=== PATIENT | male | born 1955 | race Caucasian/White ===

== ENCOUNTER 2020-11-29 09:19 | Outpatient (CLI) | payer MEDICARE, SELFPAY | END 2020-11-29 09:20 | disposition home or self-care (01) | LOC: ANHBWCAUD 09:29 | PROVIDERS: PCP Internal Medicine; Visit Provider Otolaryngology | DX: H66.93 Otitis media, unspecified, bilateral (principal); H72.93 Unspecified perforation of tympanic membrane, bilateral; H90.6 Mixed conductive and sensorineural hearing loss, bilateral | CPT/HCPCS: 92557; 92567 ==

== ENCOUNTER → 2021-01-07 02:01 | Outpatient (CLI) | payer MEDICARE, SELFPAY ==
[2021-01-09 12:48] LABS: SARS-CoV-2 RNA PCR Negative
== END ==
PROVIDERS: PCP Internal Medicine; Visit Provider Otolaryngology
DX: Z01.812 Encounter for preprocedural laboratory examination (principal); Z20.822 Contact with and (suspected) exposure to COVID-19
CPT/HCPCS: C9803; U0003; U0005

== ENCOUNTER 2021-01-07 07:45 | Outpatient (CLI) | payer MEDICARE, SELFPAY ==
--- NOTE | 2021-01-07 07:55 | ECG_ITS ---
Measurements Intervals [place] Rate: 62 P: 22 [place]: 116 QRS: -5 QRSD: 101 T: 15 QT: 400 QTc: 407 Interpretive Statements SINUS RHYTHM WITH SHORT [place] INTERVAL BASELINE ARTIFACT- I, II, III, AVR, AVL, AVF, V1-V2, V4-V6 BORDERLINE ECG Electronically Signed On 01-07-2021 8:07:51 CDT by Hesham Calvin D.O.
[2021-01-07 08:36] LABS: Anion Gap 6 mmol/L (8-16); Blood Urea Nitrogen 24 mg/dL (9-20); Calcium 9.3 mg/dL (8.4-10.2); Carbon Dioxide 30 mmol/L (22-30); Chloride 100 mmol/L (98-107); Estimated Glomerular Filt Rate > 60; Glucose 215 mg/dL (75-110); Potassium 4.4 mmol/L (3.4-5.0); Sodium 136 mmol/L (137-145)
== END 2021-01-07 07:46 | disposition home or self-care (01) ==
LOC: ANHSURGERY 07:51
PROVIDERS: Anesthesiology; PCP Internal Medicine; Visit Provider Otolaryngology
DX: I10 Essential (primary) hypertension (principal); Z01.818 Encounter for other preprocedural examination; R94.31 Abnormal electrocardiogram [ECG] [EKG]
CPT/HCPCS: 36415; 80048; 93005; C9803; U0003; U0005

== ENCOUNTER 2021-01-10 01:17 | Day surgery (SDC) | payer MEDICARE, SELFPAY ==
[2020-12-26 15:22] VITALS: BMI 41.2
--- NOTE | 2021-01-09 06:47 | PM.HPGS ---
History of Present Illness History of Present Illness Consent: Risks, benefits, and alternatives have been discussed and questions answered. Patient agrees to proceed with procedure. Chief complaint: left TM perforation Narrative: Francesco Smith is a 65 year old male with a long history of hearing loss ear drainage tympanic membrane perforations here for repeat repair of the left TM perforation Review of Systems Review of Systems: All systems reviewed & are unremarkable except as noted in HPI and below PMFSH Social History Social History Smoking packs per day: 1.5 Smoking cigarettes per day: 30.0 Years smoked: 50 Smoking pack-years: 75.00 Smoking status: Current every day smoker Tobacco type: cigarettes Drinks per week: 1 Substance use: never Additional living arrangements comments: Spiritual care concerns: No Meds Home Medications and Allergies Home Medications Medication Instructions Recorded Confirmed Type apixaban 2.5 mg tablet 2.5 mg PO BID 10/25/20 12/26/20 History aspirin 81 mg tablet,delayed 81 mg PO DAILY 10/25/20 12/26/20 History release atorvastatin 40 mg tablet 40 mg PO DAILY 10/25/20 12/26/20 History cetirizine 10 mg capsule 10 mg PO DAILY 10/25/20 12/26/20 History metoprolol tartrate 50 mg tablet 50 mg PO Q12H 10/25/20 12/26/20 History montelukast 10 mg tablet 10 mg PO DAILY 10/25/20 12/26/20 History niacin 1,000 mg tablet,extended 1,000 mg PO QHS 10/25/20 12/26/20 History release omeprazole 20 mg capsule,delayed 20 mg PO DAILY 10/25/20 12/26/20 History release cephalexin 500 mg capsule 500 mg PO Q12H #20 cap 12/24/20 12/26/20 Rx lisinopril-hydrochlorothiazide 1 tablet PO QAM 12/26/20 12/26/20 History Allergies Allergy/AdvReac Type Severity Reaction Status Date / Time No Known Allergies Allergy Verified 12/26/20 15:16 Exam Narrative: Exam Narrative: chest clear heart without murmurs bilateral tympanic membrane perforations Assessment and Plan Additional Plan left tympanoplasty
--- NOTE | 2021-01-09 10:20 | P.PNAN_ITS ---
Anes - Initial Pre Proc Eval Procedure: Operation Date: 01/10/21 08:30 Proposed Procedures p Left Tympanoplasty - Barrie Hurd MD Date/Time: 01/09/21 10:20 Surgeon: Barrie uHrd MD Pre Op Diagnosis: left TM perforation Patient Data Age: 65 Gender: M Height: 1.73 m Weight: 123 kg Allergies Allergy/AdvReac Type Severity Reaction Status Date / Time No Known Allergies Allergy Verified 01/10/21 07:35 Home Medications Medication Instructions Recorded Confirmed Type apixaban 2.5 mg tablet 2.5 mg PO BID 10/25/20 12/26/20 History aspirin 81 mg tablet,delayed 81 mg PO DAILY 10/25/20 12/26/20 History release atorvastatin 40 mg tablet 40 mg PO DAILY 10/25/20 12/26/20 History cetirizine 10 mg capsule 10 mg PO DAILY 10/25/20 12/26/20 History metoprolol tartrate 50 mg tablet 50 mg PO Q12H 10/25/20 12/26/20 History montelukast 10 mg tablet 10 mg PO DAILY 10/25/20 12/26/20 History niacin 1,000 mg tablet,extended 1,000 mg PO QHS 10/25/20 12/26/20 History release omeprazole 20 mg capsule,delayed 20 mg PO DAILY 10/25/20 12/26/20 History release cephalexin 500 mg capsule 500 mg PO Q12H #20 cap 12/24/20 12/26/20 Rx lisinopril-hydrochlorothiazide 1 tablet PO QAM 12/26/20 12/26/20 History Patient hx anesthesia problems: none Family hx anesthesia problems: none [facility] Past Medical History Medical History (Updated 01/09/21 @ 10:19 by Casey Pierre DO) Anticoagulant long-term use GERD (gastroesophageal reflux disease) Hyperlipidemia Hypertension KASEY (obstructive sleep apnea) CPAP PVD (peripheral vascular disease) Social History Social History Smoking packs per day: 1.5 Smoking cigarettes per day: 30.0 Years smoked: 50 Smoking pack-years: 75.00 Smoking status: Current every day smoker Tobacco type: cigarettes Drinks per week: 1 Substance use: never Living arrangements: with family Additional living arrangements comments: Spiritual care concerns: No Anes - Eval Final PreProcedure Day of Procedure 01/09/21 10:20 Patient weight: morbidly obese Heart: regular rate and rhythm Lungs: clear to auscultation and normal air movement Airway: Mallampati scale class III Neurological: alert and oriented Last oral intake: >/= 8 hours ASA classification: III Emergent: no Anesthetic plan: proceed Anesthesia type and monitoring: general LMA and standard monitoring Informed Consent: The patient's anesthetic plan and its attendant risks and benefits were discussed with the patient/family/POA. Questions were solicited and answers provided to the satisfaction of the patient/family/POA.
[2021-01-10] VITALS (9 sets, daily range): BP systolic 116–143; BP diastolic 58–72; PULSE 58–85; RESP 18–24; TEMP 36.1–36.2; O2SAT 96–98; BMI 43.2
--- NOTE | 2021-01-10 05:52 | WPDHPUPDATE1 ---
History and Physical Update Update Date/Time: 01/10/21 05:52 History and Physical has been reviewed, including an updated exam of the patient. There are NO changes in the patient's condition. Risks, benefits, and alternatives have been discussed and questions answered. Patient agrees to proceed with procedure.
[2021-01-10 07:54] LABS: Glucose Point of Care 188 mg/dl (65-105)
[2021-01-10] MEDS: LACTATED RINGERS 1,000 ML 30 ML IV CONT (08:03)
[2021-01-10] MEDS: CIPROFLOXACIN HCL 0.3% OP SOLN 2.5 ML BTL 4 DROP EACH EAR (09:06)
[2021-01-10] MEDS: NEOMYCIN/POLYMYXIN B/PRAMOXINE 15 GM CREAM 1 APPLIC TOPICAL ×2 (09:08→09:26)
[2021-01-10] MEDS: LIDO 1%/EPINEPHRINE 1:100,000 50 ML VIAL INFILTRATE (09:08)
[2021-01-10] MEDS: LIDO 1%/EPINEPHRINE 1:100,000 20 ML VIAL 5 ML INFILTRATE (09:26)
[2021-01-10] MEDS: CIPROFLOXACIN HCL 0.3% OP SOLN 2.5 ML BTL 4 DROP LEFT EAR (09:27)
--- NOTE | 2021-01-10 09:42 | PM.PROC ---
Procedure Note - Detailed Date of procedure: 01/10/21 Pre-op diagnosis: left TM perforation Left tympanic membrane perforation Post-op diagnosis: same Description of procedure: Patient was prepped and draped fashion anesthesia the left ear was sterilely prepped and draped inspection of the revealed a small tear perforation posteriorly remained remainder of the eardrum was irritated but the intact was elected to packed the middle ear with Gelfoam and using epi disc to cover the small hole and then Gelfoam was used to cover the epi disc an ointment placed in the ear canal patient awakened retned to recovery in good condition Anesthesia: GLMA Surgeon: Barrie Hurd MD Estimated blood loss (mL): 5 Drains: No Packing: No Pathology: none sent Complications: No immediate complications Condition: stable Findings: Small posterior tympanic membrane perforation left ear
--- NOTE | 2021-01-10 14:01 | SUR.PREOP ---
0900; dr mayer notified of blood sugar
[2021-01-15 09:35] LABS: Glucose Point of Care 168 mg/dl (65-105)
--- NOTE | 2021-01-15 09:58 | PM.PROC ---
Procedure Note - Detailed Date of procedure: 01/15/21 Pre-op diagnosis: left TM perforation Surgeon: Barrie Hurd MD
== END 2021-01-10 12:10 | disposition home or self-care (01) ==
PROVIDERS: PCP Internal Medicine; Visit Provider Otolaryngology
PROC: (CPT 69610; principal; 2021-01-10 08:30)
DX: H72.92 Unspecified perforation of tympanic membrane, left ear (principal); I10 Essential (primary) hypertension; E78.5 Hyperlipidemia, unspecified; K21.9 Gastro-esophageal reflux disease without esophagitis; I73.9 Peripheral vascular disease, unspecified; G47.33 Obstructive sleep apnea (adult) (pediatric); F17.210 Nicotine dependence, cigarettes, uncomplicated; E66.01 Morbid (severe) obesity due to excess calories; Z68.41 Body mass index [BMI] 40.0-44.9, adult; Z79.01 Long term (current) use of anticoagulants; Z79.82 Long term (current) use of aspirin
CPT/HCPCS: 69610; 82948; A9270; C1763; J0171; J2405; J2704; J7120

== ENCOUNTER 2021-04-02 09:10 | Outpatient (CLI) | payer MEDICARE, SELFPAY ==
--- NOTE | ~2021-04-02 | CT_ITS ---
EXAMINATION: CT lung screening DATE: 04/02/2021 09:36 INDICATION: Personal history of tobacco dependence TECHNIQUE: Computed tomography (CT) of the chest was performed without intravenous contrast. The dose -length product was 368.43 mGy-cm. Automated exposure control and iterative reconstruction technique were employed. COMPARISON: CT dated 07/30/2015 FINDINGS: Borderline heart size. No significant pleural or pericardial effusion. There is atheroscler osis of the aorta and coronary arteries. No thoracic lymphadenopathy. Mild mediastinal lipomatosis. T here is patchy groundglass opacification in the lower lobes which may represent atelectasis or small airway disease. No endobronchial lesions. There is a surgical suture line in the left upper lobe sugg esting partial pneumonectomy with associated atelectasis/scarring. Clinically correlate. The upper ab domen is unremarkable. There is mild emphysema. IMPRESSION: 1. Lung-RADS category 1: Negative. Continue annual screening with noncontrast low-dose chest CT in 12 months. Reviewed, dictated and finalized at location A. IMPRESSION: 1. Lung-RADS category 1: Negative. Continue annual screening with noncontrast l ow-dose chest CT in 12 months.
== END 2021-04-02 09:11 | disposition home or self-care (01) ==
LOC: CHSIMG 09:12
PROVIDERS: PCP Internal Medicine; Visit Provider Internal Medicine
DX: Z12.2 Encounter for screening for malignant neoplasm of respiratory organs (principal); Z87.891 Personal history of nicotine dependence
CPT/HCPCS: 71271

== ENCOUNTER 2021-05-09 09:15 | Outpatient (RCR) | payer MEDICARE, SELFPAY ==
[2021-05-23 11:31] VITALS: BMI 38.9
[2021-05-23 11:32] VITALS: BMI 38.9
== END 2021-07-22 10:45 | disposition home or self-care (01) ==
LOC: ANHDMC 09:15
PROVIDERS: PCP Internal Medicine; Visit Provider Internal Medicine
DX: E11.69 Type 2 diabetes mellitus with other specified complication (principal); Z71.3 Dietary counseling and surveillance; Z71.89 Other specified counseling
CPT/HCPCS: 97804; G0108

== ENCOUNTER 2021-08-23 10:44 | Outpatient (CLI) | payer MEDICARE, SELFPAY | END 2021-08-23 10:45 | disposition home or self-care (01) | LOC: ANHBWCAUD 10:44 | PROVIDERS: PCP Internal Medicine; Visit Provider Otolaryngology | DX: H66.92 Otitis media, unspecified, left ear (principal); H72.03 Central perforation of tympanic membrane, bilateral; H90.6 Mixed conductive and sensorineural hearing loss, bilateral | CPT/HCPCS: 92557; 92567 ==

== ENCOUNTER 2021-09-03 00:23 | Day surgery (SDC) | payer MEDICARE, SELFPAY ==
[2021-08-19 14:01] VITALS: BMI 35.0
[2021-09-03 06:20] VITALS: BP 155/73; PULSE 72; RESP 18; TEMP 36.1; O2SAT 100; BMI 34.5
[2021-09-03 06:43] LABS: Glucose Point of Care 131 mg/dl (65-105)
[2021-09-03] MEDS: LACTATED RINGERS 1,000 ML 150 ML IV CONT (06:53)
--- NOTE | 2021-09-03 06:59 | WPDANESEPPF ---
Anes - Initial Pre Proc Eval Procedure: Operation Date: 09/03/21 07:30 Proposed Procedures p Colonoscopy - Molina Deal MD Date/Time: 09/03/21 06:59 Surgeon: Molina Deal MD Pre Op Diagnosis: positive cologuard Patient Data Age: 66 Gender: M Height: 1.73 m Weight: 103.1 kg Last Vital Signs Temp 36.1 C L 09/03/21 06:20 Pulse 72 09/03/21 06:20 Resp 18 09/03/21 06:20 BP 155/73 H 09/03/21 06:20 Pulse Ox 100 09/03/21 06:20 Allergies Allergy/AdvReac Type Severity Reaction Status Date / Time No Known Allergies Allergy Verified 09/03/21 06:32 Home Medications Medication Instructions Recorded Confirmed Type apixaban 2.5 mg tablet 2.5 mg PO BID 10/25/20 09/03/21 History aspirin 81 mg tablet,delayed 81 mg PO DAILY 10/25/20 08/19/21 History release atorvastatin 40 mg tablet 40 mg PO DAILY 10/25/20 08/19/21 History cetirizine 10 mg capsule 10 mg PO DAILY 10/25/20 08/19/21 History metoprolol tartrate 50 mg tablet 50 mg PO Q12H 10/25/20 08/19/21 History montelukast 10 mg tablet 10 mg PO DAILY 10/25/20 08/19/21 History niacin 1,000 mg tablet,extended 1,000 mg PO QHS 10/25/20 09/03/21 History release omeprazole 20 mg capsule,delayed 20 mg PO DAILY 10/25/20 08/19/21 History release lisinopril-hydrochlorothiazide 1 tablet PO QAM 12/26/20 08/19/21 History empagliflozin 10 mg tablet 10 mg PO DAILY 07/17/21 08/19/21 History Laboratory Tests 09/03/21 06:42 POC Capillary Glucose 131 mg/dl H mg/dl (65-105) Patient hx anesthesia problems: none Family hx anesthesia problems: none Results Review: All pre-operative results and documents have been reviewed as part of the pre-operative evaluation. [facility] Past Medical History Medical History Anticoagulant long-term use GERD (gastroesophageal reflux disease) Hyperlipidemia Hypertension KASEY (obstructive sleep apnea) CPAP PVD (peripheral vascular disease) Social History Social History Smoking packs per day: 1.5 Smoking cigarettes per day: 30.0 Years smoked: 50 Smoking pack-years: 75.00 Smoking status: Current every day smoker Tobacco type: cigarettes Alcohol intake: current Drinks per week: 1 Alcohol use details: 4 per month Substance use: never Substance use type: does not use Living arrangements: with family Additional living arrangements comments: Spiritual care concerns: No Anes - Eval Final PreProcedure Day of Procedure 09/03/21 06:59 Patient weight: obese Heart: regular rate and rhythm Lungs: decreased breath sounds Airway: Mallampati scale class III Neurological: alert and oriented Last oral intake: >/= 8 hours ASA classification: IV Emergent: no Anesthetic plan: proceed Anesthesia type and monitoring: general GIVS and standard monitoring Results Review: All pre-operative results and documents have been reviewed as part of the pre-operative evaluation. Informed Consent: The patient's anesthetic plan and its attendant risks and benefits were discussed with the patient/family/POA. Questions were solicited and answers provided to the satisfaction of the patient/family/POA.
--- NOTE | 2021-09-03 07:24 | PM.HPGS ---
History of Present Illness History of Present Illness Consent: Risks, benefits, and alternatives have been discussed and questions answered. Patient agrees to proceed with procedure. Chief complaint: positive cologuard Narrative: Francesco Smith is a 66 year old male with positive cologuard, last colonoscopy about 12 years ago. Review of Systems Constitutional: Constitutional: Denies headache(s) and Denies weakness Eyes: Eyes: Denies blurry vision ENT: Reports Normal hearing present, Denies headache(s) and Denies neck pain Cardiovascular: Cardiovascular: Denies chest pain and Denies dyspnea Respiratory: Respiratory: Denies dyspnea Gastrointestinal: Gastrointestinal: Reports no additional gastrointestinal complaints Genitourinary: Genitourinary: Denies dysuria Musculoskeletal: Musculoskeletal: Denies neck pain Integumentary/Breasts: Skin/Breast: Denies dry skin Neurologic: Reports Normal hearing present, Denies headache(s) and Denies weakness Psychiatric: Psychiatric: Denies anxiety Endocrine: Endocrine: Denies change in body appearance Hematologic/Lymphatic: Hematologic/Lymphatic: Denies easy bleeding Allergic/Immunologic: Allergic/Immunologic: Denies urticaria PMFSH Past Medical History Medical History (Updated 09/03/21 @ 07:24 by Molina Deal MD) Anticoagulant long-term use GERD (gastroesophageal reflux disease) Hyperlipidemia Hypertension KASEY (obstructive sleep apnea) CPAP Positive colorectal cancer screening using Cologuard test PVD (peripheral vascular disease) Social History Social History Smoking packs per day: 1.5 Smoking cigarettes per day: 30.0 Years smoked: 50 Smoking pack-years: 75.00 Smoking status: Current every day smoker Tobacco type: cigarettes Alcohol intake: current Drinks per week: 1 Alcohol use details: 4 per month Substance use: never Substance use type: does not use Living arrangements: with family Additional living arrangements comments: Spiritual care concerns: No Meds Home Medications and Allergies Home Medications Medication Instructions Recorded Confirmed Type apixaban 2.5 mg tablet 2.5 mg PO BID 10/25/20 09/03/21 History aspirin 81 mg tablet,delayed 81 mg PO DAILY 10/25/20 08/19/21 History release atorvastatin 40 mg tablet 40 mg PO DAILY 10/25/20 08/19/21 History cetirizine 10 mg capsule 10 mg PO DAILY 10/25/20 08/19/21 History metoprolol tartrate 50 mg tablet 50 mg PO Q12H 10/25/20 08/19/21 History montelukast 10 mg tablet 10 mg PO DAILY 10/25/20 08/19/21 History niacin 1,000 mg tablet,extended 1,000 mg PO QHS 10/25/20 09/03/21 History release omeprazole 20 mg capsule,delayed 20 mg PO DAILY 10/25/20 08/19/21 History release lisinopril-hydrochlorothiazide 1 tablet PO QAM 12/26/20 08/19/21 History empagliflozin 10 mg tablet 10 mg PO DAILY 07/17/21 08/19/21 History Allergies Allergy/AdvReac Type Severity Reaction Status Date / Time No Known Allergies Allergy Verified 09/03/21 06:32 Vital Signs Vital Signs - 24 hr 09/03/21 06:20 Temperature 97.0 F L Pulse Rate 72 Respiratory Rate 18 Blood Pressure 155/73 H Pulse Oximetry 100 Exam Const: General: comfortable and no acute distress HENMT: General nose exam: Normal nares present Eyes: General: appearance normal, both eyes and all related structures Neck: Neck: no JVD Resp: Auscultation: clear to auscultation bilaterally Cardio: Rate: regular rate Rhythm: regular rhythm GI: Inspection: non-distended GI Palp: Yes Soft to palpation Skin: General skin exam: normal color Neuro: General: gait normal Speech: normal speech Extrem: General: normal to inspection Psych: Mental Status: mental status grossly normal Assessment and Plan Assessment and plan (1) Positive colorectal cancer screening using Cologuard test: Code(s): R19.5 - Other fecal abnormal
[2021-09-03 07:59] VITALS: BP 84/49; PULSE 68; RESP 21; O2SAT 95
[2021-09-03 08:09] VITALS: BP 91/53; PULSE 72; RESP 15; O2SAT 98
[2021-09-03 08:19] VITALS: BP 137/68; PULSE 69; RESP 15; O2SAT 100
== END 2021-09-03 08:29 | disposition home or self-care (01) ==
PROVIDERS: PCP Internal Medicine; Visit Provider Internal Medicine Gastroenterology
PROC: 0DJD8ZZ Inspection of Lower Intestinal Tract, Via Natural or Artificial Opening Endoscopic (ICD-10-PCS; CPT 45378; principal; 2021-09-03 07:30)
DX: R19.5 Other fecal abnormalities (principal); D12.2 Benign neoplasm of ascending colon; D12.3 Benign neoplasm of transverse colon; D12.4 Benign neoplasm of descending colon; K57.30 Diverticulosis of large intestine without perforation or abscess without bleeding; K64.8 Other hemorrhoids; I10 Essential (primary) hypertension; E78.5 Hyperlipidemia, unspecified; G47.33 Obstructive sleep apnea (adult) (pediatric); I73.9 Peripheral vascular disease, unspecified; Z79.01 Long term (current) use of anticoagulants; Z79.84 Long term (current) use of oral hypoglycemic drugs; F17.210 Nicotine dependence, cigarettes, uncomplicated; E66.9 Obesity, unspecified; Z68.34 Body mass index [BMI] 34.0-34.9, adult
CPT/HCPCS: 45380; 45385; 82948; 88305; J2704; J7120

== ENCOUNTER 2021-09-17 10:00 | Outpatient (RCR) | payer SELFPAY | END 2021-12-02 23:59 | disposition home or self-care (01) | LOC: ANHBWCAUD 10:00 | PROVIDERS: PCP Internal Medicine; Visit Provider Otolaryngology | DX: Z46.1 Encounter for fitting and adjustment of hearing aid (principal) | CPT/HCPCS: 99199; V5257 ==

== ENCOUNTER 2022-04-24 09:52 | Outpatient (CLI) | payer MEDICARE, SELFPAY ==
--- NOTE | ~2022-04-24 | CT_ITS ---
EXAMINATION: CT lung screening DATE: 04/24/2022 10:08 INDICATION: Personal history of nicotine dependence, current smoker with 50 pack year history TECHNIQUE: Computed tomography (CT) of the chest was performed without intravenous contrast. The dose -length product (DLP) was 372.05 mGy-cm. Automated exposure control and iterative reconstruction tech [employer] were employed. COMPARISON: 04/02/2021 FINDINGS: There are changes of partial left pneumonectomy. No suspicious pulmonary nodules are identi fied. There is mild emphysema. No pleural effusion or pneumothorax. No pathologically enlarged thorac ic lymph nodes are identified. The heart size is normal. Calcified coronary artery atherosclerosis is noted. There are bridging osteophytes at multiple levels in the spine, consistent with diffuse idiop athic skeletal hyperostosis (DISH). IMPRESSION: 1. Lung-RADS category 1: Negative. Continue annual screening with noncontrast low-dose chest CT in 12 months. Reviewed, dictated and finalized at location B. IMPRESSION: 1. Lung-RADS category 1: Negative. Continue annual screening with noncontrast l ow-dose chest CT in 12 months.
== END 2022-04-24 09:53 | disposition home or self-care (01) ==
LOC: CHSIMG 09:54
PROVIDERS: PCP Internal Medicine; Visit Provider Internal Medicine
DX: Z12.2 Encounter for screening for malignant neoplasm of respiratory organs (principal); Z87.891 Personal history of nicotine dependence
CPT/HCPCS: 71271

== ENCOUNTER 2022-09-05 10:45 | Outpatient (CLI) | payer MEDICARE, SELFPAY ==
--- NOTE | ~2022-09-05 | XR_ITS ---
Clinical Indication: COPD, chest pain PA and lateral views of the chest: Comparison: 04/16/2016 Findings: The lungs are clear, without evidence of focal consolidation or pleural effusion. Cardiome diastinal silhouette is within normal limits. Bones and soft tissues are unremarkable. Impression: Normal chest. Reviewed, dictated and finalized at [facility]. [employer] Impression: Normal chest.
== END 2022-09-05 10:46 | disposition home or self-care (01) ==
LOC: CHSIMG 10:47
PROVIDERS: PCP Internal Medicine; Visit Provider Internal Medicine
DX: J44.9 Chronic obstructive pulmonary disease, unspecified (principal); M54.6 Pain in thoracic spine
CPT/HCPCS: 71046

== ENCOUNTER 2024-11-08 10:56 | Outpatient (CLI) | payer MEDICARE, SELFPAY ==
--- OUTSIDE RECORDS SUMMARY | 2024-11-08 13:00 | XMS_ITS | Encounter Summary ---
Author Organization [facility] Address [facility] [place] [address] Care Team Providers Care Director Of Aviation Name Role Phone Doroteo Vuong MD Primary Care Provider [phone] Sachin Urbano MD Unavailable Barrie Diego MD Unavailable [phone] Encounter Details Date Type Department Care Team (Late st Contact Info) Description 04/25/2022 Hospital Orders Only [facility] Pre/Post [address] [place] [address] Barrie Diego MD [address] [facility], [facility] [address] [place] [address] Social History Tobacco Use Types Packs/Day Years Used Date Smoking Tobacco: Every Day Cigarettes Smokeless Tobacco: Never Alcohol Use Standard Drinks/Week Comments No 0 (1 standard drink = 0.6 oz pur e alcohol) Sex and Gender Information Value Date Recorded Sex Assigned at Male 09/01/2024 11:26 AM [employer] Legal Sex Male 1:56 PM CDT Gender Identity Not on file Sexual Orientation Not on file Occupation Industry Job Start Date Job End Date Not on file Not on file Not on file Not on file documented as of this encounter Plan of Treatment Not on file documented as of this encounter Visit Diagnoses Not on filedocumented in this encounter Care Teams Director Of Aviation Relationship Specialty Start Date End Date Doroteo Vuong MD [address] [place] [id number] PCP - General INTERNAL MEDICINE 01/19/18 Sachin Urbano MD [address] [place] [address] Consulting Physician INTERNAL MEDICINE 03/04/22 Barrie Diego MD [address] [place] [address] Consulting Physician INTERVENTIONAL CARDIOLOGY 03/10/22 documented as of this encounter
--- OUTSIDE RECORDS SUMMARY | 2024-11-08 13:00 | XMS_ITS | Clinical Summary ---
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 Active montelukast 10 MG tablet Take 1 tablet (10 mg total) by mouth nightly at bedtime. Active cetirizine 10 MG tablet Take 1 tablet (10 mg total) by mouth daily. Active omeprazole 20 MG capsule Take 1 capsule (20 mg total) by mouth daily. Active niacin ER 500 MG ER tablet Take 2 tablets (1,000 mg total) by mouth daily. Active aspirin EC (ECOTRIN) 81 MG tablet Take 1 tablet (81 mg total) by mouth daily. Active lisinopril-hydro chlorothiazide 20-12.5 MG tablet Take 1 tablet by mouth daily. 9 Active fluticasone furoate 27.5 MCG/SPRAY Suspension 1 spray by Each Nostril route as needed. Active LYMPHEDEMA PUMP, DME,Indications: Chronic venous insufficiency,Hi story of DVT (deep vein thrombosis) Apply 1 Device topically daily. Lymphedema Pump DX I89.0 1 Device 1 0 Active empagliflozin (JARDIANCE) 25 MG tablet 3 Active buPROPion XL (WELLBUTRIN XL) 150 MG 24 hr tablet 3 Active metoprolol tartrate 75 MG Tab Take 75 mg by mouth 2 (two) times daily. 60 tablet 5 4 Active ELIQUIS 2.5 MG tablet take one tablet by mouth twice a day 180 tablet 2 4 Active cilostazol (PLETAL) 100 MG tablet take one tablet by mouth twice a day 180 tablet 6 4 Active COMPRESSION STOCKINGSIndicat ions:PVD (peripheral vascular disease) with claudication 10-15 MMHg Compression Stocking Knee High open or closed toe to be worn during waking hours Dx I83.893 1 Container 6 4 Active rosuvastatin (CRESTOR) 40 MG tablet Take 1 tablet (40 mg total) by mouth nightly at bedtime. Active Active Problems Problem Noted Date Diagnosed Date Primary hypertension 09/01/2023 History of DVT (deep vein thrombosis) 01/18/2020 Varicose veins of bilateral lower extremities with other complications 01/31/2019 residential (current) use of anticoagulants 2017 Acute deep vein thrombosis ( DVT) of femoral vein of left lower extremity ([facility]/HCC HHS/HCC) 03/23/2018 Ulcer of left lower extremit y with fat layer exposed ([facility]/HCC HHS/HCC) 03/23/2018 PVD (peripheral vascular disease) with claudicat ion 02/04/2018 Chronic venous insufficiency 02/04/2018 Femoral-popliteal bypass graft occlusion, left 0 02/04/2018 Acute deep vein thrombosis ( DVT) of popliteal vein of left lower extremity (CMS/HCC HHS/HCC) 02/04/2018 Bilateral leg pain PAD (peripheral artery disease) PVD (peripheral vascular disease) Overview (02/09/2018): S/P Left leg bypass Smoking trying to quit 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 (CMS/HCC HHS/HCC) Resolved Problems Problem Noted Date Diagnosed Date Resolved Date Postoperative follow-up 04/21/201804/17 Encounters Date Type Department Care Team Description 11/01/2024 1:30 PM CDT - 11/01/2024 11:59 PM CDT Hospital Encounter [facility] [address] [place] [address] Ai Mueller, SIGNAL APPRENTICE Discharge Disposition: Home or Self Care (Routine Discharge) 11/01/2024 Travel 10/17/2024 1:30 PM COREMAKER - 10/17/2024 11:59 PM COREMAKER Hospital Encounter [facility] [address] [place] [address] Ai Mueller, SIGNAL APPRENTICE Discharge Disposition: Home or Self Care (Routine Discharge) 10/17/2024 Travel 10/10/2024 1:25 PM COREMAKER - 10/10/2024 11:59 PM COREMAKER Hospital Encounter [facility] [address] [place] [address] Ai Mueller, SIGNAL APPRENTICE Discharge Disposition: Home or Self Care (Routine Discharge) 10/10/2024 Travel 10/03/2024 Travel 09/29/2024 11:26 AM COREMAKER - 09/29/2024 11:59 PM COREMAKER Hospital Encounter [facility] [address] [place] [address] Ai Mueller, SIGNAL APPRENTICE Discharge Disposition: Home or Self Care (Routine Discharge) 09/29/2024 Travel 09/22/2024 11:28 AM COREMAKER - 09/22/2024 11:59 PM COREMAKER Hospital Encounter [facility] [address] [place] [address] Ai Mueller, SIGNAL APPRENTICE Discharge Disposition: Home or Self Care (Routine Discharge) 09/21/2024 1:53 PM COREMAKER - 09/21/2024 11:59 PM COREMAKER Hospital Encounter [facility] [address] [id number] [place] [address] Rashel Vences MD Discharge Disposition: Home or Self Care (Routine Discharge) 09/21/2024 Travel 09/15/2024 11:25 AM COREMAKER - 09/15/2024 11:59 PM COREMAKER Hospital Encounter [facility] [address] [place] [address] Ai Mueller, SIGNAL APPRENTICE Discharge Disposition: Home or Self Care (Routine Discharge) 09/15/2024 Travel 09/08/2024 11:25 AM COREMAKER - 09/08/2024 11:59 PM COREMAKER Hospital Encounter [facility] [address] [place] [address] Ai Mueller, SIGNAL APPRENTICE Discharge Disposition: Home or Self Care (Routine Discharge) 09/08/2024 Travel 09/01/2024 11:27 AM COREMAKER - 09/01/2024 11:59 PM COREMAKER Hospital Encounter [facility] [address] [place] [address] Ai Mueller, SIGNAL APPRENTICE Discharge Disposition: Home or Self Care (Routine Discharge) 09/01/2024 Travel 08/31/2024 [facility] [address] [place] [address] Scanned, Doc Pccl 08/25/2024 11:30 AM COREMAKER - 08/25/2024 11:59 PM COREMAKER Hospital Encounter [facility] [address] [place] [address] Ai Mueller, SIGNAL APPRENTICE Discharge Disposition: Home or Self Care (Routine Discharge) 08/25/2024 Travel 08/18/2024 10:47 AM COREMAKER - 08/18/2024 11:59 PM COREMAKER Hospital Encounter [facility] [address] [place] [address] Ai Mueller, SIGNAL APPRENTICE Discharge Disposition: Home or Self Care (Routine Discharge) 08/18/2024 Travel 08/11/2024 12:42 PM COREMAKER - 08/11/2024 11:59 PM COREMAKER Hospital Encounter [facility] [address] [place] [address] Ai Mueller, SIGNAL APPRENTICE Discharge Disposition: Home or Self Care (Routine Discharge) 08/11/2024 Travel from Last 3 Months Immunizations Name Administration Dates Next Due Influenza Adult (Generic) 06/15/2019,,08/26/2017,04/16/2016,05/18,05/04/2012 Pneumococcal (Pneumovax 23) 12/28/2013 Pneumococcal (Prevnar 13) 12/30/2018 Tdap (Adacel) 12/28/2013 Family History Medical History Relation Comments Heart Attack Father Relation Status Comments Father PAD , Maternal Grandfather Maternal Grandmother Mother CHF Paternal Grandfather Paternal Grandmother Social History Tobacco Use Types Packs/Day Years Used Date Smoking Tobacco: Every Day Cigarettes Smokeless Tobacco: Never Tobacco Cessation:Ready to Q uit: Not Asked; Counseling Given: Not Answered Alcohol Use Standard Drinks/Week Comments No 0 (1 standard drink = 0.6 oz pur e alcohol) Sex and Gender Information Value Date Recorded Sex Assigned at Male 09/01/2024 11:26 AM COREMAKER Legal Sex Male 1:56 PM CDT Gender Identity Not on file Sexual Orientation Not on file Occupation Industry Job Start Date Job End Date Not on file Not on file Not on file Not on file Last Filed Vital Signs Vital Sign Reading Time Taken Comments Blood Pressure 162/76 08/02/2024 2:52 PM COREMAKER Recheck stanislaw Left Side Pulse 71 08/02/2024 2:51 PM COREMAKER Temperature 36 C (96.8 F) 04/29/2022 9:00 AM CDT Respiratory Rate 18 03/01/2024 9:13 AM CDT Oxygen Saturation 96% 03/01/2024 9:1 3 AM CDT Inhaled Oxygen Concentration - - Weight 110.2 kg (242 lb 14.4 oz) 08/02/2024 2:51 PM COREMAKER Height 172.7 cm (5' 8 ) 08/02/2024 2:51 PM COREMAKER Body Mass Index 36.93 08/02/2024 2:51 PM COREMAKER Plan of Treatment Health Maintenance Due Date Last Done Comments Colorectal Cancer Screening Colonoscopy (10 Years) 1955 Hepatitis C 1972 ASCVD LDL 08/19/2018 08/19/2017 Annual Medicare Wellness Visit 2019 Zoster Vaccines (2 of 2) 03/19/2022 01/22/2022 DTaP, Tdap and Td Vaccines (2 - Td or Tdap) 12/29/2023 12/28/2013 Pneumococcal Vaccine: 65+ Years Completed 05/02/2021, 12/30/2018, 12/28/2013 Influenza Adult Completed 05/30/2024, 04/17, 05/02/2021, Additional history exists COVID-19 Vaccine Completed 06/16/2024, 06/2022, 02/27/2022, Additional history exists RSV Immunization or 60+ Years Completed 07/21/2024 AAA SCREENING Completed 08/08/2024, 070 12/2022, 02/18/2022, Additional history exists Meningococcal B Vaccine Aged Out No l onger eligible based on patient's age to complete this topic Meningococcal Vaccine Aged Out No franchesca mekhi eligible based on patient's age to complete this topic RSV Immunizations Under 20 Months Aged Out No longer eligible based on patient's age to complete this topic Medical Devices Implanted Type Area Corporate Relations Director Device Identifier Shelf Expiration Date Model / Serial / Lot [id number] - [id number] Implanted:2017 by Barrie Diego MD at [facility] (Quantity not on file) Arterial [employer] - [employer] BARD [id number] / / [id number] - [id number] Implanted:Qty: 1 on 04/16/2018 by Barrie Diego MD at [facility] Arterial [employer] - DIV [employer] BARD [id number] / / [id number] Procedures Procedure Name Priority Date/Time Associated Diagnosis Comments USV VEIN MAPPING LOW ERMA Routine 09/21/2024 3:00 PM COREMAKER Anemia due to stage 5 chronic kidney disease, not on chronic dialysis ([facility]) Encounter for preprocedural neurological examination USV VEIN MAPPING UP ERMA Routine 09/21/2024 2:59 PM COREMAKER Anemia due to stage 5 chronic kidney disease, not on chronic dialysis ([facility]) Encounter for preprocedural neurological examination CULTURE, WOUND, W/GRAM STAIN Routine 08/25/2024 11:51 AM COREMAKER Non-pressure chronic ulcer of left calf limited to breakdown of skin ([facility] HHS/[facility]) CTA AORTO ILIOFEM RUNOFF ADRIEL 08/08/2024 10:39 AM COREMAKER Peripheral vascular disease LIPID PANEL Routine 08/19/2017 from Last 3 Months or Most Recently Relevant to Health Maintenance Results * USV VEIN MAPPING LOW ERMA (09/21/2024 3:00 PM COREMAKER) Anatomical Region Laterality Modality Extremity Ultrasound 09/21/2024 2:08 PM COREMAKER Narrative 09/23/2024 9:51 AM COREMAKER Vascular Report Pat.Name: FRANCESCO SMITH Pat.ID: [id number] St.Date: 09/21/2024 Refer.MD: RASHEL VENCES Exam Time: 2:08:00 PM Study Type:PVI VENOUS DUPLEX SCAN-LEGS BILAT Age: 11 1955,69Y Sex: M Sonogrphr: Osvaldo Sanders RVT, RDCS Pat. Stat.:Outpatient CPT - 4: 91935 Venous Duplex LE/UE Reason for Study:Pre-op evaluation Race: W Mapping Bilat: Bilateral lower extremity veins are patent and fully compressible with superficial vein diameters as listed. ++++++++++++++++++++++++++++++++++++ MEASUREMENTS: ++++++++++++++++++++++++++++++++++++ LEVEINS Right Dist Thigh Dist Thigh GSV 5.6 mm Right Mid Thigh Mid Thigh GSV A 7.1 mm Right Prox Thigh Prox Thigh GSV 7 mm Right SFJ SFJ GSV AP 7.9 mm Right GSV Prox Calf GSV Prox Calf A 4.6 mm Right GSV Mid Calf GSV Mid Calf AP 5.2 mm Right GSV Dist Calf GSV Dist Calf A 5.2 mm Right SSV Dist Calf SSV Dist Calf A 4 mm Right SSV Mid Calf SSV Mid Calf AP 3.1 mm Right SSV Prox Calf SSV Prox Calf A 1.9 mm Right Knee Knee GSV AP 5.8 mm Left SFJ SFJ GSV AP 5.8 mm Left Prox Thigh Prox Thigh GSV 8.9 mm Left Mid Thigh Mid Thigh GSV A 8 mm Left Dist Thigh Dist Thigh GSV 6.8 mm Left Knee Knee GSV AP 6.6 mm Left GSV Prox Calf GSV Prox Calf A 4.7 mm Left GSV Mid Calf GSV Mid Calf AP 4.8 mm Left GSV Dist Calf GSV Dist Calf 4.2 mm Left SSV Dist Calf SSV Dist Calf A 4.2 mm Left SSV Mid Calf SSV Mid Calf AP 5 mm Left SSV Prox Calf SSV Prox Calf A 3.9 mm <Electronic Signature> 09/23/2024 09:51 AM Darío Doherty M.D. Procedure Note Darío Doherty MD - 09/23/2024 Vascular Report Pat.Name: FRANCESCO SMITH Pat.ID: [id number] .Date: 09/21/2024 Refer.MD: RASHEL VENCES Exam Time: 2:08:00 PM Study Type:PVI VENOUS DUPLEX SCAN-LEGS BILAT Age: 11 1955,69Y Sex: M Sonogrphr: Osvaldo Sanders RVT, RDCS Pat. Stat.:Outpatient CPT - 4: 28440 Venous Duplex LE/UE Reason for Study:Pre-op evaluation Race: W Mapping Bilat: Bilateral lower extremity veins are patent and fully compressible with superficial vein diameters as listed. ++++++++++++++++++++++++++++++++++++ MEASUREMENTS: ++++++++++++++++++++++++++++++++++++ LEVEINS Right Dist Thigh Dist Thigh GSV 5.6 mm Right Mid Thigh Mid Thigh GSV A 7.1 mm Right Prox Thigh Prox Thigh GSV 7 mm Right SFJ SFJ GSV AP 7.9 mm Right GSV Prox Calf GSV Prox Calf A 4.6 mm Right GSV Mid Calf GSV Mid Calf AP 5.2 mm Right GSV Dist Calf GSV Dist Calf A 5.2 mm Right SSV Dist Calf SSV Dist Calf A 4 mm Right SSV Mid Calf SSV Mid Calf AP 3.1 mm Right SSV Prox Calf SSV Prox Calf A 1.9 mm Right Knee Knee GSV AP 5.8 mm Left SFJ SFJ GSV AP 5.8 mm Left Prox Thigh Prox Thigh GSV 8.9 mm Left Mid Thigh Mid Thigh GSV A 8 mm Left Dist Thigh Dist Thigh GSV 6.8 mm Left Knee Knee GSV AP 6.6 mm Left GSV Prox Calf GSV Prox Calf A 4.7 mm Left GSV Mid Calf GSV Mid Calf AP 4.8 mm Left GSV Dist Calf GSV Dist Calf 4.2 mm Left SSV Dist Calf SSV Dist Calf A 4.2 mm Left SSV Mid Calf SSV Mid Calf AP 5 mm Left SSV Prox Calf SSV Prox Calf A 3.9 mm <Electronic Signature> 09/23/2024 09:51 AM Darío Doherty M.D. us Rashel Vences MD US VASC Final Resu lt * USV VEIN MAPPING UP ERMA (09/21/2024 2:59 PM COREMAKER) Anatomical Region Laterality Modality Extremity Ultrasound 09/21/2024 2:46 PM COREMAKER Narrative 09/23/2024 9:51 AM COREMAKER Vascular Report Pat.Name: FRANCESCO SMITH Pat.ID: [id number] St.Date: 09/21/2024 Refer.MD: RASHEL VENCES Exam Time: 2:46:00 PM Study Type:PVI VENOUS DUPLEX SCAN-ARMS BILAT Age: 11 1955,69Y Sex: M Sonogrphr: Osvaldo Sanders RVT, RDCS Pat. Stat.:Outpatient CPT - 4: 28981.xs Venous Duplex LE/UE Reason for Study:Pre-op evaluation Race: W Mapping Bilat: Bilateral upper extremity veins are patent and fully compressible with superficial vein diameters as listed. ++++++++++++++++++++++++++++++++++++ MEASUREMENTS: ++++++++++++++++++++++++++++++++++++ UEVEINS Right Basilic Antecub Fossa Basilic Antecub 3.5 mm Right Basilic Forearm Dist Basilic Forearm 3.9 mm Right Basilic Forearm Mid Basilic Forearm 4.7 mm Right Basilic Forearm Prox Basilic Forearm 4.6 mm Right Basilic Upper Arm Dist Basilic Upper A 6.3 mm Right Basilic Upper Arm Mid Basilic Upper A 5.5 mm Right Basilic Upper Arm Prox Basilic Upper A 6.3 mm Right Cephalic Antecub Fossa Cephalic Antecu 9.1 mm Right Cephalic Forearm Dist Cephalic Forear 3.8 mm Right Cephalic Forearm Mid Cephalic Forear 5.3 mm Right Cephalic Forearm Prox Cephalic Forear 4.8 mm Right Cephalic Upper Arm Dist Cephalic Upper 7 mm Right Cephalic Upper Arm Mid Cephalic Upper 6.2 mm Right Cephalic Upper Arm Prox Cephalic Upper 5.2 mm Left Basilic Antecub Fossa Basilic Antecub 4.3 mm Left Basilic Forearm Dist Basilic Forearm 3.5 mm Left Basilic Forearm Mid Basilic Forearm 3.5 mm Left Basilic Forearm Prox Basilic Forearm 3.7 mm Left Basilic Upper Arm Dist Basilic Upper A 5.7 mm Left Basilic Upper Arm Mid Basilic Upper A 6.9 mm Left Basilic Upper Arm Prox Basilic Upper A 6.6 mm Left Cephalic Antecub Fossa Cephalic Antecu 5.6 mm Left Cephalic Forearm Dist Cephalic Forear 2.8 mm Left Cephalic Forearm Mid Cephalic Forear 2.7 mm Left Cephalic Forearm Prox Cephalic Forear 3.1 mm Left Cephalic Upper Arm Dist Cephalic Upper 5.1 mm Left Cephalic Upper Arm Mid Cephalic Upper 5.3 mm Left Cephalic Upper Arm Prox Cephalic Upper 5.7 mm <Electronic Signature> 09/23/2024 09:51 AM Darío Doherty M.D. Procedure Note Darío Doherty MD - 09/23/2024 Vascular Report Pat.Name: FRANCESCO SMITH Pat.ID: [id number] .Date: 09/21/2024 Refer.MD: RASHEL VENCES Exam Time: 2:46:00 PM Study Type:PVI VENOUS DUPLEX SCAN-ARMS BILAT Age: 11 1955,69Y Sex: M Sonogrphr: Osvaldo SandersT, RDCS Pat. Stat.:Outpatient CPT - 4: 70796.xs Venous Duplex LE/UE Reason for Study:Pre-op evaluation Race: W Mapping Bilat: Bilateral upper extremity veins are patent and fully compressible with superficial vein diameters as listed. ++++++++++++++++++++++++++++++++++++ MEASUREMENTS: ++++++++++++++++++++++++++++++++++++ UEVEINS Right Basilic Antecub Fossa Basilic Antecub 3.5 mm Right Basilic Forearm Dist Basilic Forearm 3.9 mm Right Basilic Forearm Mid Basilic Forearm 4.7 mm Right Basilic Forearm Prox Basilic Forearm 4.6 mm Right Basilic Upper Arm Dist Basilic Upper A 6.3 mm Right Basilic Upper Arm Mid Basilic Upper A 5.5 mm Right Basilic Upper Arm Prox Basilic Upper A 6.3 mm Right Cephalic Antecub Fossa Cephalic Antecu 9.1 mm Right Cephalic Forearm Dist Cephalic Forear 3.8 mm Right Cephalic Forearm Mid Cephalic Forear 5.3 mm Right Cephalic Forearm Prox Cephalic Forear 4.8 mm Right Cephalic Upper Arm Dist Cephalic Upper 7 mm Right Cephalic Upper Arm Mid Cephalic Upper 6.2 mm Right Cephalic Upper Arm Prox Cephalic Upper 5.2 mm Left Basilic Antecub Fossa Basilic Antecub 4.3 mm Left Basilic Forearm Dist Basilic Forearm 3.5 mm Left Basilic Forearm Mid Basilic Forearm 3.5 mm Left Basilic Forearm Prox Basilic Forearm 3.7 mm Left Basilic Upper Arm Dist Basilic Upper A 5.7 mm Left Basilic Upper Arm Mid Basilic Upper A 6.9 mm Left Basilic Upper Arm Prox Basilic Upper A 6.6 mm Left Cephalic Antecub Fossa Cephalic Antecu 5.6 mm Left Cephalic Forearm Dist Cephalic Forear 2.8 mm Left Cephalic Forearm Mid Cephalic Forear 2.7 mm Left Cephalic Forearm Prox Cephalic Forear 3.1 mm Left Cephalic Upper Arm Dist Cephalic Upper 5.1 mm Left Cephalic Upper Arm Mid Cephalic Upper 5.3 mm Left Cephalic Upper Arm Prox Cephalic Upper 5.7 mm <Electronic Signature> 09/23/2024 09:51 AM Darío Doherty M.D. us Rashel Vences MD [facility] Final Resu lt * CULTURE, WOUND, W/GRAM STAIN (08/25/2024 11:51 AM COREMAKER) SPEC DESCRIPTION LEG,LEFT 08/25/2024 12:21 PM COREMAKER [facility] SPECIAL REQUESTS NO SPECIAL REQUEST 08/25/2024 12:21 PM COREMAKER [facility] GRAM STAIN RESULT NO ORGANISMS SEEN 08/25/2024 1:09 PM COREMAKER [facility] GRAM STAIN RESULT NO WBC SEEN 08/25/2024 1:09 PM COREMAKER [facility] CULTURE RESULT FEW STAPHYLOCOCCU S, COAGULASE NEGATIVE 08/28/2024 7:46 AM COREMAKER [facility] STRUCTURE OF LEFT LOWER LIMB / Unknown 08/25/2024 11:51 AM COREMAKER 08/25/2024 12:33 PM COREMAKER us Ai Mueller SIGNAL APPRENTICE MICROBIOLOGY - GENERAL ORDERAB LES Final Result [facility] [address] 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 Chronic total occlusion of left SFA stent. Bilateral collateral circulation to a patent popliteal artery and trifurcation runoff arteries. Dominant runoff appears to be bilateral posterior tibial artery with assistance from peroneal artery. Bilateral anterior tibial artery heavily calcified. Patent aorta and iliacs. Patent common and deep femoral artery. A 7 cm long by 3 cm AP superficial skin ulceration of outer left lower leg just above the ankle. No soft tissue gas or abscess. No osteomyelitis. Ordered By: RASHEL VENCES Interpreted By: Darius Rios MD, 08/08/2024 3:25 PM Narrative 08/08/2024 3:33 PM COREMAKER [facility] [address] [place] [id number] CTA of abdominal aorta and bilateral lower extremities 08/08/2024 Indication: Claudication and leg ischemia, stents in the left leg, peripheral artery disease, peripheral vascular disease, stricture in the right leg arteries, stricture in the left leg arteries. Comparison: 02/18/2023 Technique: Images were obtained through the abdomen, pelvis and bilateral lower extremities precontrast. Images were repeated during IV contrast administration of 94 cc of Isovue-370 the indwelling IV. Axial and coronal images were reviewed. In addition 3-D volume rendered and MIP images were obtained on the independent Note workstation. NONVASCULAR FINDINGS: No acute finding seen in the lower chest, liver, spleen, gallbladder, pancreas, adrenals, kidneys, GI tract, bladder, or prostate. Prior appendectomy. Colonic diverticula. Small fat inguinal hernia. No free fluid or free air or adenopathy. Degenerated spine. Skin ulceration outer left lower leg just above the ankle. This is superficial and is 7 cm long by 3 cm AP. No soft tissue gas or abscess. No osteomyelitis. VASCULAR FINDINGS: Heavily calcified aorta without aneurysm or dissection. No significant stenosis of the aorta. Patent celiac artery and superior mesenteric artery and bilateral main renal arteries. Of note, there is a duplex right main renal artery. A small accessory left renal artery seen superiorly. Patent inferior mesenteric artery. Patent bilateral common iliac arteries with minor stenosis. Patent bilateral external iliac arteries with minor stenosis. Patent bilateral common femoral arteries. Patent bilateral deep femoral arteries. The right superficial femoral artery is occluded distally. There is collateral circulation to the popliteal artery. A 3 artery runoff is seen. The left leg shows occluded appearance of the superficial femoral artery stent. Collateral circulation to a patent popliteal artery and trifurcation runoff arteries. Dominant runoff appears to be posterior tibial artery with assistance from peroneal artery. Anterior tibial artery heavily calcified. Procedure Note Darius Rios MD - 08/08/2024 [facility] [address] [facility] [place] [id number] CTA of abdominal aorta and bilateral lower extremities 08/08/2024 Indication: Claudication and leg ischemia, stents in the left leg,peripheral artery disease, peripheral vascular disease, stricture in theright leg arteries, stricture in the left leg arteries. Comparison: 02/18/2023 Technique: Images were obtained through the abdomen, pelvis and bilaterallower extremities precontrast. Images were repeated during IV contrastadministration of 94 cc of Isovue-370 the indwelling IV. Axial and coronalimages were reviewed. In addition 3-D volume rendered and MIP images wereobtained on the independent Note workstation. NONVASCULAR FINDINGS: No acute finding seen in the lower chest, liver, spleen, gallbladder,pancreas, adrenals, kidneys, GI tract, bladder, or prostate. Priorappendectomy. Colonic diverticula. Small fat inguinal hernia. No freefluid or free air or adenopathy. Degenerated spine. Skin ulceration outerleft lower leg just above the ankle. This is superficial and is 7 cm longby 3 cm AP. No soft tissue gas or abscess. No osteomyelitis. VASCULAR FINDINGS: Heavily calcified aorta without aneurysm or dissection. No significantstenosis of the aorta. Patent celiac artery and superior mesentericartery and bilateral main renal arteries. Of note, there is a duplexright main renal artery. A small accessory left renal artery seensuperiorly. Patent inferior mesenteric artery. Patent bilateral common iliac arteries with minor stenosis. Patentbilateral external iliac arteries with minor stenosis. Patent bilateral common femoral arteries. Patent bilateral deep femoralarteries. The right superficial femoral artery is occluded distally. There iscollateral circulation to the popliteal artery. A 3 artery runoff isseen. The left leg shows occluded appearance of the superficial femoralartery stent. Collateral circulation to a patent popliteal artery andtrifurcation runoff arteries. Dominant runoff appears to be posteriortibial artery with assistance from peroneal artery. Anterior tibial arteryheavily calcified. 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 Chronic total occlusion of left SFA stent. Bilateral collateral circulation to a patent popliteal artery andtrifurcation runoff arteries. Dominant runoff appears to be bilateralposterior tibial artery with assistance from peroneal artery. Bilateralanterior tibial artery heavily calcified. Patent aorta and iliacs. Patent common and deep femoral artery. A 7 cm long by 3 cm AP superficial skin ulceration of outer left lower legjust above the ankle. No soft tissue gas or abscess. No osteomyelitis. 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
--- OUTSIDE RECORDS SUMMARY | 2024-11-08 13:00 | XMS_ITS | Encounter Summary ---
Author Organization [facility] Address [facility] [place] [address] Care Team Providers Care Reverse Engineer Name Role Phone Doroteo Vuong MD Primary Care Provider [phone] Sachin Urbano MD Unavailable Sachin Urbano MD Unavailable Barrie Diego MD Unavailable [phone] Encounter Details Date Type Department Care Team (Late st Contact Info) Description 01/18/2020 Abstract [facility] [address] [place] [address] Sachin Urbano MD [address] [facility], [address] [place] [address] Social History Tobacco Use Types Packs/Day Years Used Date Smoking Tobacco: Every Day Cigarettes Smokeless Tobacco: Never Alcohol Use Standard Drinks/Week Comments No 0 (1 standard drink = 0.6 oz pur e alcohol) Sex and Gender Information Value Date Recorded Sex Assigned at Male 09/01/2024 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 No / Unsure 01/18/2020 3:35 PM CDT documented as of this encounter Plan of Treatment Not on file documented as of this encounter Procedures Procedure Name Priority Date/Time Associated Diagnosis Comments BASIC METABOLIC PANEL Routine 12/24/2019 PAD (peripheral artery disease) Chronic venous insufficiency Varicose veins of bilateral lower extremities with other complications CBC, AUTO, NO DIFF Routine 12/24/2019 PAD (peripheral artery disease) Chronic venous insufficiency Varicose veins of bilateral lower extremities with other complications documented in this encounter Results * BASIC METABOLIC PANEL (12/24/2019) BUN 17 CREATININE S/P/B 1.0 0.7 - 1.3 12/24/2019 Sachin Urbano MD LABORATORY Final Result * CBC, AUTO, NO DIFF (12/24/2019) HGB 15.8 HCT 44.3 PLT 192 12/24/2019 Sachin Urbano MD LABORATORY Edited Result - Final documented in this encounter Visit Diagnoses Diagnosis PAD (peripheral artery disease) Peripheral vascular disease, unspecified Chronic venous insufficiency Unspecified venous (peripheral) insufficiency Varicose veins of bilateral lower extremities with other complications documented in this encounter Care Teams Reverse Engineer Relationship Specialty Start Date End Date Doroteo Vuong MD [address] [place] [phone] PCP - General INTERNAL MEDICINE 01/19/18 Sachin Urbano MD [address] [place] [address] Vascular/Rn Documentation Specialist INTERNAL MEDICINE 02/04/18 Sachin Urbano MD [address] [place] [address] Consulting Physician INTERNAL MEDICINE 03/04/22 Barrie Diego MD [address] [place] [address] Consulting Physician INTERVENTIONAL CARDIOLOGY 03/10/22 documented as of this encounter
== END 2024-11-08 10:57 | disposition home or self-care (01) ==
LOC: ANHBWCAUD 10:57
PROVIDERS: PCP Internal Medicine; Visit Provider Otolaryngology
DX: H72.02 Central perforation of tympanic membrane, left ear (principal); H71.22 Cholesteatoma of mastoid, left ear; H90.6 Mixed conductive and sensorineural hearing loss, bilateral
CPT/HCPCS: 92557; 92567

== ENCOUNTER 2024-12-19 14:31 | Outpatient (CLI) | payer MEDICARE, SELFPAY ==
--- NOTE | ~2024-12-19 | XR_ITS ---
XR chest 2V Ordering provider: Lisa Ham, DISHCLOTH FOLDER History: 69 years Male with . Productive Cough, Fever . Comparison: September 05, 2022 FINDINGS: MEDIASTINUM: The cardiac silhouette is not enlarged. LUNGS: No pneumothorax. Opacification the left lung base medially is seen. Minimal opacification in the right perihilar area suggestive of pneumonia. Blunting of the right costophrenic angle is noted. OTHER: No free air under the diaphragm. Degenerative changes of the spine. IMPRESSION: Right perihilar pneumonia. Left basilar atelectasis versus pneumonia medially. Blunting of the right costophrenic angle which ma y be due to fibrosis or effusion. Reviewed, dictated and finalized at location A. IMPRESSION: Right perihilar pneumonia. Left basilar atelectasis versus pneumonia medially. Blunting of the right costo phrenic angle which may be due to fibrosis or effusion.
--- OUTSIDE RECORDS SUMMARY | 2024-12-19 15:10 | XMS_ITS | Encounter Summary ---
Author Organization [facility] Address [facility] [place] [address] Care Team Providers Care Blood Bank Custodian Name Role Phone Doroteo Vuong MD Primary Care Provider [phone] Sachin Urbano MD Unavailable Barrie Diego MD Unavailable [phone] Encounter Details Date Type Department Care Team (Late st Contact Info) Description 04/25/2022 Hospital Orders Only [place] Technican Pre/Post [address] [place], [place] [id number] Barrie Diego MD [address] [facility] [address] [place] [address] Social History Tobacco Use Types Packs/Day Years Used Date Smoking Tobacco: Every Day Cigarettes Smokeless Tobacco: Never Alcohol Use Standard Drinks/Week Comments No 0 (1 standard drink = 0.6 oz pur e alcohol) Sex and Gender Information Value Date Recorded Sex Assigned at Male 09/01/2024 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 Legal Sex Male 1:56 PM CDT Gender Identity Not on file Sexual Orientation Not on file Occupation Industry Job Start Date Job End Date Not on file Not on file Not on file Not on file documented as of this encounter Plan of Treatment Not on file documented as of this encounter Visit Diagnoses Not on filedocumented in this encounter Care Teams Blood Bank Custodian Relationship Specialty Start Date End Date Doroteo Vuong MD [address] [place] [phone] PCP - General INTERNAL MEDICINE 01/19/18 Sachin Urbano MD [address] [place] [phone] Consulting Physician INTERNAL MEDICINE 03/04/22 Barrie Diego MD [address] [place] [phone] Consulting Physician INTERVENTIONAL CARDIOLOGY 03/10/22 documented as of this encounter
--- OUTSIDE RECORDS SUMMARY | 2024-12-19 15:10 | XMS_ITS | Referral Summary ---
Author Organization [facility] Address [facility] [place] [address] Care Team Providers Care Esthetician/Skin Therapist Name Role Phone Doroteo Vuong MD Primary Care Provider [phone] Encounters Date Type Department Care Team Description 12/06/2024 10:20 AM CDT Office Visit [facility] [address] [facility] Office Building [address] [place] [address] Tatyana Mathews MD Cholesteatoma of mastoid, left ear; Central perforation of tympanic membrane, right ear; Mixed conductive and sensorineural hearing loss, bilateral from Last 3 Months Allergies Active Allergy Reactions Criticality Noted Date Comments Adhesive Tape-Silicones Medications Eliquis 2.5 mg tablet Take 1 tablet (2.5 mg total) by mouth 2 (two) times a day 5 Active aspirin 81 mg enteric coated tablet Take 1 tablet (81 mg total) by mouth daily Active buPROPion XL (WELLBUTRIN XL) 150 mg 24 hr tablet Take 1 tablet (150 mg total) by mouth cutter operator before breakfast 3 Active cetirizine (ZyrTEC) 10 mg tablet Take 1 tablet (10 mg total) by mouth daily Active cilostazoL (PLETAL) 100 mg tablet Take 1 tablet (100 mg total) by mouth 2 (two) times a day 4 Active clopidogreL (PLAVIX) 75 mg tablet Take 1 tablet (75 mg total) by mouth daily 5 Active empagliflozin (JARDIANCE) 25 mg tablet Take 1 tablet (25 mg total) by mouth daily 3 Active fluticasone (VERAMYST) 27.5 mcg/actuation nasal spray Administer 1 spray into affected nostril(s) as needed Active lisinopril-hydr oCHLOROthiazide (ZESTORETIC) 20-12.5 mg per tablet Take 1 tablet by mouth daily 9 Active metoprolol tartrate (LOPRESSOR) 75 mg tablet immediate release tablet Take 1 tablet (75 mg total) by mouth 2 (two) times a day 4 Active montelukast (SINGULAIR) 10 mg tablet Take 1 tablet (10 mg total) by mouth daily Active niacin ER (SLO-NIACIN) 500 mg CR tablet Take 2 tablets (1,000 mg total) by mouth daily Active ofloxacin (FLOXIN) 0.3 % otic solution 5 Active omeprazole (PriLOSEC) 20 mg capsule Take 1 capsule (20 mg total) by mouth daily Active rosuvastatin (CRESTOR) 40 mg tablet Take 1 tablet (40 mg total) by mouth daily Active Rybelsus 7 mg tablet 5 Active Active Problems Problem Noted Date Diagnosed Date Bilateral leg pain 12/06/2024 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 12/06/2024 Primary hypertension 09/01/2023 Varicose veins of bilateral lower extremities with other complications 01/31/2019 Acute deep vein thrombosis ( DVT) of femoral vein of left lower extremity 03/23/2018 Ulcer of left lower extremity with fat layer exp osed 03/23/2018 Acute deep vein thrombosis ( DVT) of popliteal vein of left lower extremity 02/04/2018 Chronic venous insufficiency 02/04/2018 Femoral-popliteal bypass graft occlusion, left 0 02/04/2018 PAD (peripheral artery disease) 02/04/2018 Overview (12/06/2024): S/P Left leg bypass Histoplasmosis 05/08/2011 Lung mass 04/10/2011 Immunizations Immunization Administration Dates Next Due Influenza, Quad, Adjuvantate d, Intramuscular 04/28/2023 Influenza, Quadrivalent, Hig h Dose, Preservative Free, Intrr 05/30/2024 Influenza, Quadrivalent, Spl it, Intramuscular 08/26/2017,06/07/2014 Influenza, Quadrivalent, Spl it, Preservative Free, Intramuscular 04/30/2022,05/02/2021,06/15/2019,06/09,04/16/2016 Influenza, Trivalent, IM (MDV) 05/04/2012 Pneumococcal Conjugate PCV 13 12/30/2018 Pneumococcal Polysaccharide PPV23 05/02/2021, RSV, Bivalent, Protein Subun it Rsvpref, Diluent (Abrysvo) 07/21/2024 Tdap 12/28/2013 ZOSTER Recombinant 01/22/2022 Social History Tobacco Use Types Packs/Day Years Used Date Smoking Tobacco: Former Sex and Gender Information Value Date Recorded Sex Assigned at Not on file Legal Sex Male 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
--- OUTSIDE RECORDS SUMMARY | 2024-12-19 15:10 | XMS_ITS | Clinical Summary ---
Author Organization [facility] Address [address] [place] [address] Care Team Providers Care Reinforced Steel Placing Supervisor Name Role Phone Doroteo Vuong MD Primary Care Provider [phone] Sachin Urbano MD Unavailable Barrie Diego MD Unavailable [phone] Allergies No known active allergies Medications montelukast 10 MG tablet Take 1 tablet [...] (81 mg total) by mouth daily. Active lisinopril-hydr ochlorothiazide 20-12.5 MG tablet Take 1 tablet by mouth daily. 01/09/20 19 Active fluticasone furoate 27.5 MCG/SPRAY Suspension 1 spray by Each Nostril route as needed (prn). Active LYMPHEDEMA PUMP, DME,Indications :Chronic venous insufficiency,H istory of DVT (deep vein thrombosis) Apply 1 Device topically daily. Lymphedema Pump DX I89.0 1 Device 1 01/18/20 20 Active empagliflozin (JARDIANCE) 25 MG tablet Take 1 tablet (25 mg total) by mouth daily. 08/28/19 23 Active buPROPion XL (WELLBUTRIN XL) 150 MG 24 hr tablet Take 1 tablet (150 mg total) by mouth every morning. 12/26/19 23 Active metoprolol tartrate 75 MG Tab Take 75 mg by mouth 2 (two) times daily. 60 tablet 5 09/01/19 24 Active cilostazol (PLETAL) 100 MG tablet take one tablet by mouth twice a day 180 tablet 6 03/01/20 24 Active Additional Information Patient taking differently: 100 mg Oral 2 times daily, Reported on 11/21/2024 COMPRESSION STOCKINGSIndica tions:PVD (peripheral vascular disease) with claudication 10-15 MMHg Compression Stocking Knee High open or closed toe to be worn during waking hours Dx I83.893 1 Container 6 03/04/20 24 Active Additional Information Patient taking differently: 1 Application Does not apply See admin instructions, 10-15 MMHg Compression Stocking Knee High open or closed toe to be worn during waking hoursDx I83.893, Reported on 11/21/2024 rosuvastatin (CRESTOR) 40 MG tablet Take 1 tablet (40 mg total) by mouth nightly at bedtime. Active Semaglutide (RYBELSUS) 1.5 MG Tab Take 3 mg by mouth daily. Active clopidogrel (PLAVIX) 75 MG tablet Take 1 tablet (75 mg total) by mouth daily. 30 tablet 11/22/19 25 Active apixaban (ELIQUIS) 2.5 MG tablet TAKE ONE TABLET BY MOUTH TWICE A DAY 180 tablet 11/29/19 25 Active atorvastatin 40 MG tablet Take 40 mg by mouth daily. 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) use of anticoagulants 2017 Acute deep vein thrombosis ( DVT) of femoral vein of left lower extremity ([facility]) 03/23/2018 Ulcer of left lower extremit y with fat layer exposed ([facility]/HCC) 03/23/2018 PVD (peripheral vascular disease) with claudicat ion 02/04/2018 Chronic venous insufficiency 02/04/2018 Femoral-popliteal bypass graft occlusion, left 0 02/04/2018 Acute deep vein thrombosis ( DVT) of popliteal vein of left lower extremity ([facility] HHS/HCC) 02/04/2018 Bilateral leg pain PAD (peripheral artery disease) PVD (peripheral vascular disease) Overview (02/09/2018): S/P Left leg bypass Smoking trying to quit 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 ([facility]/HCC) Resolved Problems Problem Noted Date Diagnosed Date Resolved Date Postoperative follow-up 04/21/201804/17 Encounters Date Type Department Care Team Description 12/14/2024 9:53 AM CDT - 12/14/2024 11:59 PM CDT Hospital Encounter [facility] [address] [place] [address] Rashel Vences MD Discharge Disposition: Home or Self Care (Routine Discharge) 12/14/2024 Travel 11/21/2024 6:34 AM CDT - 11/21/2024 4:05 PM CDT Hospital Encounter [facility] [address] [place] [address] Rashel Vences MD Discharge Disposition: Home or Self Care (Routine Discharge) 11/21/2024 Travel 11/01/2024 1:30 PM CDT - 11/01/2024 11:59 PM CDT Hospital Encounter [facility] [address] [place] [address] Ai Mueller FNP Discharge Disposition: Home or Self Care (Routine Discharge) 11/01/2024 Travel 10/17/2024 1:30 PM PLASTICS SCIENTIST - 10/17/2024 11:59 PM PLASTICS SCIENTIST Hospital Encounter [facility] [address] [place] [address] Ai Mueller FNP Discharge Disposition: Home or Self Care (Routine Discharge) 10/17/2024 Travel 10/10/2024 1:25 PM PLASTICS SCIENTIST - 10/10/2024 11:59 PM PLASTICS SCIENTIST Hospital Encounter [facility] [address] [place] [address] Ai Mueller, MIKE Discharge Disposition: Home or Self Care (Routine Discharge) 10/10/2024 Travel 10/03/2024 Travel 09/29/2024 11:26 AM PLASTICS SCIENTIST - 09/29/2024 11:59 PM PLASTICS SCIENTIST Hospital Encounter [facility] [address] [place] [address] Ai Mueller, MIKE Discharge Disposition: Home or Self Care (Routine Discharge) 09/29/2024 Travel 09/22/2024 11:28 AM PLASTICS SCIENTIST - 09/22/2024 11:59 PM PLASTICS SCIENTIST Hospital Encounter [facility] [address] [place] [address] Ai Mueller, MIKE Discharge Disposition: Home or Self Care (Routine Discharge) 09/21/2024 1:53 PM PLASTICS SCIENTIST - 09/21/2024 11:59 PM PLASTICS SCIENTIST Hospital Encounter [facility] [address] [place] [address] Rashel Vences MD Discharge Disposition: Home or Self Care (Routine Discharge) 09/21/2024 Travel from Last 3 Months Immunizations Immunization Administration Dates Next Due Influenza Adult (Generic) [...] Sex Assigned at Male 09/01/2024 11:26 AM PLASTICS SCIENTIST Legal Sex Male 1:56 PM CDT Gender Identity Not on file Sexual Orientation Not on file Occupation Industry Job Start Date Job End Date Not on file Not on file Not on file Not on file Last Filed Vital Signs Vital Sign Reading Time Taken Comments Blood Pressure 159/74 11/21/2024 7:37 AM CDT Pulse 89 11/21/2024 7:32 AM CDT Temperature 37.2 C (99 F) 11/21/2024 7:32 AM CDT Respiratory Rate 24 11/21/2024 7:32 AM CDT Oxygen Saturation 94% 11/21/2024 7:32 AM CDT Inhaled Oxygen Concentration - - Weight 105.7 kg (233 lb 0.4 oz) 11/21/2024 7:37 AM CDT Height 172.7 cm (5' 8 ) 11/21/2024 7:37 AM CDT Body Mass Index 35.43 11/21/2024 7:37 AM CDT Plan of Treatment Health Maintenance Due Date Last Done Comments Colorectal Cancer Screening Colonoscopy (10 Years) 1955 Hepatitis C 1972 ASCVD LDL 08/19/2018 08/19/2017 Annual Medicare Wellness Visit 2019 Zoster Vaccines (2 of 2) 03/19/2022 01/22/2022 DTaP, Tdap and Td Vaccines (2 - Td or Tdap) 12/29/2023 12/28/2013 COVID-19 Vaccine ( season) 2024 06/16/2024, 05/27/2022, 02/27/2022, Additional history exists Pneumococcal Vaccine: 50+ Years Completed 05/02/2021, 12/30/2018, 12/28/2013 RSV Immunization or 60+ Years Completed 07/21/2024 AAA SCREENING Completed 08/08/2024, 0712/2022, 02/18/2022, Additional history exists Meningococcal B Vaccine Aged Out No l onger eligible based on patient's age to complete this topic Meningococcal Vaccine Aged Out No franchesca mekhi eligible based on patient's age to complete this topic RSV Immunizations Under 20 Months Aged Out No longer eligible based on patient's age to complete this topic Medical Devices Implanted Type Area Hydrogen Operator Device Identifier Shelf Expiration Date Model / Serial / Lot Trinway Viabahn 6mm X 10cm-11/21/2024 Implanted:Qty: 1 on 11/21/2024 by Rashel Vences MD [employer] 11/25/2026 [id number] / [id number] / [id number] - [id number] Implanted:2017 by Barrie Diego MD at [facility] (Quantity not on file) Arterial [employer] - DIV C R BARD [id number] / / [id number] - [id number] Implanted:Qty: 1 on 04/16/2018 by Barrie Diego MD at [facility] Arterial [employer] - DIV C R BARD [id number] / / [id number] Procedures Procedure Name Priority Date/Time Associated Diagnosis Comments USV ART DUPLEX LOW LT Routine 12/14/2024 10:33 AM CDT Peripheral vascular disease POCT GLUCOSE - OCONNELL DOCKED DEVICE Routine 11/21/2024 11:40 AM CDT POCT ACTIVATED CLOTTING TIME - ISTAT DOCKED DEVICE Routine 11/21/2024 11:08 AM CDT POCT ACTIVATED CLOTTING TIME - ISTAT DOCKED DEVICE Routine 11/21/2024 10:34 AM CDT POCT ACTIVATED CLOTTING TIME - ISTAT DOCKED DEVICE Routine 11/21/2024 10:14 AM CDT POCT ACTIVATED CLOTTING TIME - ISTAT DOCKED DEVICE Routine 11/21/2024 9:38 AM CDT POCT ACTIVATED CLOTTING TIME - ISTAT DOCKED DEVICE Routine 11/21/2024 9:25 AM CDT PARTIAL THROMBOPLASTIN TIME,PTT Routine 11/21/2024 7:15 AM CDT Preop cardiovascular exam PROTHROMBIN TIME, VENOUS Routine 11/21/2024 7:15 AM CDT Preop cardiovascular exam BASIC METABOLIC PANEL Routine 11/21/2024 7:15 AM CDT Preop cardiovascular exam CBC, AUTO, NO DIFF Routine 11/21/2024 7: 15 AM CDT Preop cardiovascular exam USV VEIN MAPPING LOW ERMA Routine 09/21/2024 3:00 PM PLASTICS SCIENTIST Anemia due to stage 5 chronic kidney disease, not on chronic dialysis ([facility] HHS/HCC) Encounter for preprocedural neurological examination USV VEIN MAPPING UP ERMA Routine 09/21/2024 2:59 PM PLASTICS SCIENTIST Anemia due to stage 5 chronic kidney disease, not on chronic dialysis ([facility] HHS/HCC) Encounter for preprocedural neurological examination CTA AORTO ILIOFEM RUNOFF ADRIEL 08/08/2024 10:39 AM PLASTICS SCIENTIST Peripheral vascular disease LIPID PANEL Routine 08/19/2017 from Last 3 Months or Most Recently Relevant to Health Maintenance Results * USV ART DUPLEX LOW LT (12/14/2024 10:33 AM CDT) Anatomical Region Laterality Modality Extremity Ultrasound 12/14/2024 10:0 2 AM CDT Narrative 12/19/2024 2:19 PM CDT Vascular Report Pat.Name: FRANCESCO SMITH Pat.ID: [id number] St.Date: 12/14/2024 Refer.MD: RASHEL VENCES Exam Time: 10:02:00 AM Study Type:PVI ART DUPLEX SCAN-LEFT LEG Age: 11 1955,69Y Sex: M Sonogrphr: Lorena Mcneal, RVT Pat. Stat.:Outpatient CPT - 4: 95034 Arterial Duplex LE Reason for Study:PVD Race: W ++++++++++++++++++++++++++++++++++++ FINDINGS: ++++++++++++++++++++++++++++++++++++ Lt Lower Ext: Stent noted in the proximal to distal superficial femoral artery. Stent fracture noted in the proximal thigh stent. Patent stent. The resting TIMOTHY is 1.07. ++++++++++++++++++++++++++++++++++++ MEASUREMENTS: ++++++++++++++++++++++++++++++++++++ DOPPLER Left POKER IN POKER IN PSV 133 cm/s Left Prox Profunda Prox Profunda P 39 cm/s Left Prox SFA Prox SFA PSV 95 cm/s Left Prox Pop A Prox Pop A PSV 71 cm/s Left Dist Pop A Dist Pop A PSV 62 cm/s Left Tib Cooper Trunk Tib Cooper Trunk 83 cm/s Left Prox FERMENTING CELLARS RECEIVER Prox FERMENTING CELLARS RECEIVER PSV 61 cm/s Left Dist FERNIE Dist FERNIE PSV 18 cm/s GRAFT Left Inflow Stent Prox-Dist SFA:Stent Inflow Stent PS 96 cm/s Left Origin Stent Prox-Dist SFA:Stent Origin Stent PS 79 cm/s Left Prox Stent Prox-Dist SFA:Stent Prox Stent PSV 81 cm/s Left Mid Stent Prox-Dist SFA:Stent Mid Stent PSV 148 cm/s Left Dist Stent Prox-Dist SFA:Stent Dist Stent PSV 124 cm/s Left Outflow Stent Prox-Dist SFA:Stent Outflow Stent P 71 cm/s <Electronic Signature> 12/19/2024 02:19 PM Radha Stovall M.D. Procedure Note Radha Stovall MD - 12/19/2024 Vascular Report Pat.Name: FRANCESCO SMITH Pat.ID: [id number] .Date: 12/14/2024 Refer.MD: RASHEL VENCES Exam Time: 10:02:00 AM Study Type:PVI ART DUPLEX SCAN-LEFT LEG Age: 11 1955,69Y Sex: M Sonogrphr: Lorena Mcneal RVT Pat. Stat.:Outpatient CPT - 4: 62793 Arterial Duplex LE Reason for Study:PVD Race: W ++++++++++++++++++++++++++++++++++++ FINDINGS: ++++++++++++++++++++++++++++++++++++ Lt Lower Ext: Stent noted in the proximal to distal superficial femoral artery. Stent fracture noted in the proximal thigh stent. Patent stent. The resting TIMOTHY is 1.07. ++++++++++++++++++++++++++++++++++++ MEASUREMENTS: ++++++++++++++++++++++++++++++++++++ DOPPLER Left POKER IN POKER IN PSV 133 cm/s Left Prox Profunda Prox Profunda P 39 cm/s Left Prox SFA Prox SFA PSV 95 cm/s Left Prox Pop A Prox Pop A PSV 71 cm/s Left Dist Pop A Dist Pop A PSV 62 cm/s Left Tib Cooper Trunk Tib Cooper Trunk 83 cm/s Left Prox FERMENTING CELLARS RECEIVER Prox FERMENTING CELLARS RECEIVER PSV 61 cm/s Left Dist FERNIE Dist FERNIE PSV 18 cm/s GRAFT Left Inflow Stent Prox-Dist SFA:Stent Inflow Stent PS 96 cm/s Left Origin Stent Prox-Dist SFA:Stent Origin Stent PS 79 cm/s Left Prox Stent Prox-Dist SFA:Stent Prox Stent PSV 81 cm/s Left Mid Stent Prox-Dist SFA:Stent Mid Stent PSV 148 cm/s Left Dist Stent Prox-Dist SFA:Stent Dist Stent PSV 124 cm/s Left Outflow Stent Prox-Dist SFA:Stent Outflow Stent P 71 cm/s <Electronic Signature> 12/19/2024 02:19 PM Radha Stovall M.D. Rashel Vences MD [facility] Final Resu lt * POCT glucose (11/21/2024 11:40 AM CDT) [facility] GLUCOSE POC 84 70 - 109 11/21/2024 11:41 AM CDT [facility] 11/21/2024 11:4 0 AM CDT Rashel Vences MD POCT ORDERABLES - DEVICE F inal Result [facility] [address] [place] [address], [id number] * (ABNORMAL) POCT ACTIVATED CLOTTING TIME - ISTAT DOCKED DEVICE (11/21/2024 11:08 AM CDT) Only the most recent of5 resultswithin the time period is included. ACTIVATED CLOTTING TIME (ACT HMT OR LMT) 227(H) 74 - 137 SEC 11/21/2024 3:43 PM CDT [facility] 11/21/2024 11:0 8 AM CDT us Rashel Vences MD POCT ORDERABLES - DEVICE F inal Result Performing Organization Address [facility] Phone Number [facility] [address] [place] [address], [id number] * PARTIAL THROMBOPLASTIN TIME,PTT (11/21/2024 7:15 AM CDT) PTT 29.4 25.1 - 36.5 SEC 11/21/2024 7:48 AM CDT [facility] 11/21/2024 7:15 AM CDT us Rashel Vences MD LABORATORY Final Resu lt Performing Organization Address [facility] de Phone Number [facility] [address] [place] [address], [id number] * PROTIME/INR, VENOUS (PROTHROMBIN TIME) (11/21/2024 7:15 AM CDT) PROTIME 11.1 9.4 - 12.5 SEC 11/21/2024 7:45 AM CDT [facility] INR 1.0 0.8 - 1.1 11/21/2024 7:45 AM CDT [facility] 11/21/2024 7:15 AM CDT us Rashel Vences MD LABORATORY Final Resu lt [facility] [address] [place] [address], [place] [phone] * (ABNORMAL) BASIC METABOLIC PANEL (11/21/2024 7:15 AM CDT) SODIUM S/P/B 138 136 - 145 MMOL/L 11/21/2024 7:41 AM CDT [facility] POTASSIUM S/P/B 4.3 3.5 - 5.1 MMOL/L 11/21/2024 7:41 AM CDT [facility] CHLORIDE S/P/B 105 97 - 115 MMOL/L 11/21/2024 7:41 AM CDT [facility] CO2 28.2 21.0 - 32.0 MMOL/L 11/21/2024 7:41 AM CDT [facility] GLUCOSE 127(H) 74 - 106 MG/DL 11/21/2024 7:41 AM CDT [facility] BUN 17 7 - 18 MG/DL 11/21/2024 7:41 AM CDT [facility] CREATININE S/P/B 1.45(H) 0.70 - 1.30 MG/DL 11/21/2024 7:41 AM CDT [facility] CALCIUM S/P/B 9.5 8.5 - 10.1 MG/DL 11/21/2024 7:41 AM CDT [facility] ANION GAP 4.8 2.0 - 10.0 MMOL/L 11/21/2024 7:41 AM CDT [facility] OSMOLALITY (CALC) 289 MOSM/KG 025 7:41 AM CDT [facility] Comment:REFERENCE RANGE NOT ESTABLISHED GFR ESTIMATE 52(L) >90 ML/MIN/1. 73 M2 11/21/2024 7:41 AM CDT [facility] GFR NOTES GFR REFERENCE S: 11/21/2024 7:41 AM CDT [facility] Comment: THE ESTIMATED GFR IS CALCULATED USING THE 2020 CKD-EPI EQUATION. THE FOLLOWING CATEGORIES FOR GRADING RENAL FUNCTION ARE RECOMMENDED BY THE INTERNATIONAL SOCIETY OF NEPHROLOGY (KDIGO 2012 CLINICAL PRACTICE GUIDELINE). G1,NORMAL OR HIGH: >89 ml/min/1.73 m2 G2,MILDLY DECREASED: 60-89 ml/min/1.73 m2 G3A,MILDLY TO MODERATELY DECREASED: 45-59 ml/min/1.73 m2 G3B,MODERATELY TO SEVERELY DECREASED: 30-44 ml/min/1.73 m2 G4,SEVERELY DECREASED: 15-29 ml/min/1.73 m2 G5,KIDNEY FAILURE: <15 ml/min/1.73 m2 11/21/2024 7:15 AM CDT us Rashel Vences MD LABORATORY Final Resu lt [facility] [address] [place] [address], [id number] * (ABNORMAL) CBC, AUTO, NO DIFF (11/21/2024 7:15 AM CDT) WBC 9.54 4.00 - 10.80 x10'3/uL 11/21/2024 7:22 AM CDT [facility] RBC 4.27(L) 4.50 - 6.10 x10'6/uL 11/21/2024 7:22 AM CDT [facility] HGB 12.6 12.0 - 16.0 G/DL 11/21/2024 7:22 AM CDT [facility] HCT 37.7 37.0 - 52.0 % 11/21/2024 7:22 AM CDT [facility] MCV 88.3 78.0 - 100.0 FL 11/21/2024 7:22 AM CDT [facility] MCH 29.5 27.0 - 31.0 PG 11/21/2024 7:22 AM CDT [facility] MCHC 33.4 33.0 - 36.0 G/DL 11/21/2024 7:22 AM CDT [facility] RDW 13.4 11.5 - 14.5 % 11/21/2024 7:22 AM CDT [facility] PLT 189 150 - 350 x10'3/uL 11/21/2024 7:22 AM CDT [facility] MPV 8.6 7.4 - 10.4 FL 11/21/2024 7:22 AM CDT [facility] 11/21/2024 7:15 AM CDT Rashel Vences MD LABORATORY Final Resu lt [facility] [address] [place] [address], [id number] * USV VEIN MAPPING LOW ERMA (09/21/2024 3:00 PM PLASTICS SCIENTIST) Anatomical Region Laterality Modality Extremity Ultrasound 09/21/2024 2:08 PM PLASTICS SCIENTIST Narrative 09/23/2024 9:51 AM PLASTICS SCIENTIST Vascular Report Pat.Name: FRANCESCO SMITH Pat.ID: [id number] .Date: 09/21/2024 Refer.MD: RASHEL VENCES Exam Time: 2:08:00 PM Study Type:PVI VENOUS DUPLEX SCAN-LEGS BILAT Age: 11 1955,69Y Sex: M Sonogrphr: Osvaldo Sanders RVOneil, PAPO Pat. Stat.:Outpatient CPT - 4: 07771 Venous Duplex LE/UE Reason for Study:Pre-op evaluation [...] 09/23/2024 Vascular Report Pat.Name: FRANCESCO SMITH Pat.ID: [id number] .Date: 09/21/2024 Refer.MD: RASHEL VENCES Exam Time: 2:08:00 PM Study Type:PVI VENOUS DUPLEX SCAN-LEGS BILAT Age: 11 1955,69Y Sex: M Sonogrphr: Osvaldo Sanders RVT, RDCS Pat. Stat.:Outpatient CPT - 4: 87424 Venous Duplex LE/UE Reason for Study:Pre-op evaluation [...] Darío Doherty M.D. us Rashel Vences MD VASC Final Resu lt * USV VEIN MAPPING UP ERMA (09/21/2024 2:59 PM PLASTICS SCIENTIST) Anatomical Region Laterality Modality Extremity Ultrasound 09/21/2024 2:46 PM PLASTICS SCIENTIST Narrative 09/23/2024 9:51 AM PLASTICS SCIENTIST Vascular Report Pat.Name: FRANCESCO SMITH Pat.ID: [id number] St.Date: 09/21/2024 Refer.MD: RASHEL VENCES Exam Time: 2:46:00 PM Study Type:PVI VENOUS DUPLEX SCAN-ARMS BILAT Age: 11 1955,69Y Sex: M Sonogrphr: Osvaldo Sanders RVT, RDCS Pat. Stat.:Outpatient CPT - 4: 50195.xs Venous Duplex LE/UE Reason for Study:Pre-op evaluation [...] 09/23/2024 Vascular Report Pat.Name: FRANCESCO SMITH Pat.ID: [id number] .Date: 09/21/2024 Refer.MD: RASHEL VENCES Exam Time: 2:46:00 PM Study Type:PVI VENOUS DUPLEX SCAN-ARMS BILAT Age: 11 1955,69Y Sex: M Sonogrphr: Osvaldo Sanders RVT, RDCHRIS Pat. Stat.:Outpatient CPT - 4: 75133.xs Venous Duplex LE/UE Reason for Study:Pre-op evaluation [...] Signature> 09/23/2024 09:51 AM Darío Doherty M.D. Rashel Vences MD VAS Final Resu lt * CTA AORTO ILIOFEM RUNOFF (08/08/2024 10:39 AM PLASTICS SCIENTIST) Anatomical Region Laterality Modality Abdomen, Pelvis, Extremity Compu nick Tomography 08/08/2024 3:25 PM PLASTICS SCIENTIST Impressions 08/08/2024 3:33 PM PLASTICS SCIENTIST IMPRESSION: Chronic total occlusion of distal right [...] 08/08/2024 3:25 PM Narrative 08/08/2024 3:33 PM PLASTICS SCIENTIST [address] [place] [address] CTA of abdominal aorta and bilateral lower [...] MIP images were obtained on the independent [employer] workstation. NONVASCULAR FINDINGS: No acute finding seen [...] Procedure Note Darius Rios MD - 08/08/2024 [place] [id number] [facility] [place] [address] CTA of abdominal aorta and bilateral lower [...] and MIP images wereobtained on the independent [employer] workstation. NONVASCULAR FINDINGS: No acute finding seen [...] gas or abscess. No osteomyelitis. 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
--- OUTSIDE RECORDS SUMMARY | 2024-12-19 15:10 | XMS_ITS | Clinical Summary ---
Author Organization [facility] Address [address] [place] [address] Care Team Providers Care Block Splitter Operator Name Role Phone Doroteo Vuong MD Primary Care Provider [phone] Allergies Active Allergy Reactions Criticality Noted Date Comments Adhesive Tape-Silicones Medications Eliquis 2.5 mg tablet Take 1 tablet (2.5 mg total) by mouth 2 (two) times a day 5 Active aspirin 81 mg enteric coated tablet Take 1 tablet (81 mg total) by mouth daily Active buPROPion XL (WELLBUTRIN XL) 150 mg 24 hr tablet Take 1 tablet (150 mg total) by mouth staff internist office based only before breakfast 3 Active cetirizine (ZyrTEC) 10 [...] leg bypass Histoplasmosis 05/08/2011 Lung mass 04/10/2011 Encounters Date Type Department Care Team Description 12/06/2024 10:20 AM CDT Office Visit [facility] ENT [address] [place] [id number] Tatyana Mathews MD Cholesteatoma of mastoid, left ear; Central perforation of tympanic membrane, right ear; Mixed conductive and sensorineural hearing loss, bilateral from Last 3 Months Immunizations Immunization Administration Dates Next Due Influenza, Quad, Adjuvantate d, Intramuscular 04/28/2023 Influenza, Quadrivalent, Hig h Dose, Preservative Free, Intrr 05/30/2024 Influenza, Quadrivalent, Spl it, Intramuscular 08/26/2017,06/07/2014 Influenza, Quadrivalent, Spl it, Preservative Free, Intramuscular 04/30/2022,05/02/2021,06/15/2019,06/09,04/16/2016 Influenza, Trivalent, IM (MDV) 05/04/2012 Pneumococcal Conjugate PCV 13 12/30/2018 Pneumococcal Polysaccharide PPV23 05/02/2021, RSV, Bivalent, Protein Subun it Rsvpref, Diluent (Abrysvo) 07/21/2024 Tdap 12/28/2013 ZOSTER Recombinant 01/22/2022 Surgical History Surgery Date Site/Laterality Comments AL BYPASS W/VEIN FEMORAL-POPLITEAL Bypass Graft Using Vein: Femoral-popliteal - -bypass procedure reported by the patient AL COLONOSCOPY FLX DX W/SOO J SPEC WHEN PFRMD Colonoscopy (Fiberoptic) - -w/removal of benign polyps (Added by TW Conv) INGUINAL HERNIA REPAIR Inguinal Hernia Repair - -bilateral (Added by TW Conv) Medical History Medical History Date Comments Personal history of other di seases of the circulatory system History of hypertension - (A dded by TW Conv) Personal history of other en docrine, nutritional and metabolic disease History of hyperlipi demia - (Added by TW Conv) Personal history of other di seases of urinary system History of acute renal failu re - -per outside records this has resolved and was mostly prerenal phenomenon in the setting of MERCY inhibitors and diuretic use--pt believes this was when he was dehydrated (Added by TW Conv) Personal history of other di seases of the circulatory system History of peripheral vascul ar disease - -reports bypas procedure on the left leg--currently no symptoms (Added by TW Conv) Social History Tobacco Use Types Packs/Day Years Used Date Smoking Tobacco: Former Sex and Gender Information Value Date Recorded Sex Assigned at Not on file Legal Sex Male 8:44 AM GREASE MAN Gender Identity Not on file Sexual Orientation Not on file Obstetrics History Plan of Treatment Health Maintenance Due Date Last Done Comments Colon Cancer Screening-Colonoscopy 1954 Depression Screening 1954 Fall Risk Assessment 1954 Hepatitis C Screening 1954 Hepatitis B Screening 1972 Well Visit 65+ 2019 Zoster Vaccine (2 of 2) 03/19/2022 01/22/2022 DTaP/Tdap/Td Vaccine (2 - Td or Tdap) 12/29/2023 12/28/2013 Covid-19 Vaccine (2023-09 5 season) 2024 06/16/2024, 05/27/2022, 02/27/2022, Additional history exists Pneumococcal vaccine 65+ Completed 021, 12/30/2018, 12/28/2013 Influenza Vaccine Completed 05/30/2024, , 04/30/2022, Additional history exists Abdominal Aortic Aneurysm (A AA) Screen Completed 08/08/2024, 02/18/2023, 02/18/2022, Additional history exists Insurance T MEDICARE [employer] MEDIC[employer] Care Teams Block Splitter Operator Relationship Specialty Start Date End Date Doroteo Vuong MD [address], [place] [id number] PCP - General Internal Medicine 11/01/24
--- OUTSIDE RECORDS SUMMARY | 2024-12-19 15:10 | XMS_ITS | Encounter Summary ---
Author Organization [facility] Address [facility] [place] [address] Care Team Providers Care Sampling Theory Teacher Name Role Phone Doroteo Vuong MD Primary Care Provider [phone] Sachin Urbano MD Unavailable Sachin Urbano MD Unavailable Barrie Diego MD Unavailable [phone] Encounter Details Date Type Department Care Team (Late st Contact Info) Description 01/18/2020 Abstract [facility] [address] [place] [address] Sachin Urabno MD [address] 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 Legal Sex Male 1:56 PM CDT Gender [...] HGB 15.8 HCT 44.3 PLT 192 12/24/2019 us Sachin Urbano MD LABORATORY Edited Result - Final documented in this encounter Visit Diagnoses Diagnosis PAD (peripheral artery disease) Peripheral vascular disease, unspecified Chronic venous insufficiency Unspecified venous (peripheral) insufficiency Varicose veins of bilateral lower extremities with other complications documented in this encounter Care Teams Sampling Theory Teacher Relationship Specialty Start Date End Date Doroteo Vuong MD [address] [place] [address] PCP - General INTERNAL MEDICINE 01/19/18 Sachin Urbano MD [address] [place] [address] Vascular/Senior Principal INTERNAL MEDICINE 02/04/18 Sahcin Urbano MD [address] [place] [address] Consulting Physician INTERNAL MEDICINE 03/04/22 Barrie Diego MD [address] [place] [address] Consulting Physician INTERVENTIONAL CARDIOLOGY 03/10/22 documented as of this encounter
== END 2024-12-19 14:32 | disposition home or self-care (01) ==
LOC: CHSIMG 14:34
PROVIDERS: PCP Internal Medicine; Visit Provider Nurse Practitioner Family
DX: R05.9 Cough, unspecified (principal); R50.9 Fever, unspecified; J18.9 Pneumonia, unspecified organism; R91.8 Other nonspecific abnormal finding of lung field
CPT/HCPCS: 71046

== ENCOUNTER 2024-12-20 14:00 | Outpatient (RCR) | payer MEDICARE, SELFPAY | END 2025-03-01 23:59 | disposition home or self-care (01) | LOC: ANHBWCAUD 14:00 | PROVIDERS: PCP Internal Medicine; Visit Provider Internal Medicine | DX: Z46.1 Encounter for fitting and adjustment of hearing aid (principal) | CPT/HCPCS: 99199; V5014 ==

== ENCOUNTER 2025-04-10 13:27 | Outpatient (CLI) | payer MEDICARE, SELFPAY ==
--- NOTE | ~2025-04-10 | CT_ITS ---
EXAMINATION: CT lung screening DATE: 04/10/2025 14:11 INDICATION: Personal history of nicotine dependence TECHNIQUE: Computed tomography (CT) of the chest was performed without intravenous contrast. The dose-length product was 199.59 mGy-cm. Automated exposure control and iterative reconstruction technique were employed. COMPARISON: CT dated 04/24/2022 FINDINGS: Heart size normal. No significant pleural or pericardial effusion. There are pleural-based masses in the left lower lobe largest measuring 3 x 1.8 cm and the smaller mass measuring 2.2 x 1.3 cm. There are reticulonodular densities in the lower lobes bilaterally with areas of groundglass opaci fication. There are prior surgical changes consistent with partial left pneumonectomy. There is cardiovascular atherosclerosis of the aorta and coronary arteries. No mediastinal lymphadenopathy. No significant pleural or pericardial effusion. Heart size normal. IMPRESSION: 1. Lung Rads 4B/4X: Suspicious, high likelihood of malignancy. Additional features such as reticulonodular opacities and groundglass opacification may represent infection/inflammation but not do not account for discrete pleural- based masses. Recommend follow-up CT chest in 3 months with or without contrast, pet/CT or tissue sampling biopsy. Reviewed, dictated and finalized at location O. IMPRESSION: 1. Lung Rads 4B/4X: Suspicious, high likelihood of malignancy. Additional featu res such as reticulonodular opacities and groundglass opacification may represe nt infection/inflammation but not do not account for discrete pleural-based mas ses. Recommend follow-up CT chest in 3 months with or without contrast, pet/CT or tissue sampling biopsy.
--- OUTSIDE RECORDS SUMMARY | 2025-04-10 13:34 | XMS_ITS | Encounter Summary ---
Author Organization [facility] Address [facility] [place] [address] Care Team Providers Care Check Embosser Name Role Phone Doroteo Vuong MD Primary Care Provider [phone] Sachin Urbano MD Unavailable Barrie Diego MD Unavailable [phone] Reason for Referral * Imaging (Routine) - Pending Review Specialty Diagnoses / Procedures Referred By Contac t Referred To Contact RADIOLOGY Diagnoses PVD (peripheral vascular disease) Procedures USV TIMOTHY LTD ERMA Hiren Omalley MD [address] [address] Phone: tel: fax: Referral ID Status Reason Start Date Expiration Date V isits Requested Visits Authorized [id number] Pending Review 03/03/2025 03/03/2026 1 1 * Imaging (Routine) - Pending Review Specialty Diagnoses / Procedures Referred By Contac t Referred To Contact RADIOLOGY Diagnoses Atherosclerosis of [place] artery of both lower extremities with intermittent claudication Procedures USV ART DUPLEX LOW ERMA Hiren Omalley MD [address] [address] Phone: tel: fax: Referral ID Status Reason Start Date Expiration Date V isits Requested Visits Authorized [id number] Pending Review 03/03/2025 04/02/2026 1 1 Encounter Details Date Type Department Care Team (Late Contact Info) Description 03/03/2025 Community Orders [facility] EPICCARE LINK Hiren Omalley MD [address] [address] Social History Tobacco Use Types Packs/Day Years Used Date Smoking Tobacco: Every Day Cigarettes Smokeless Tobacco: Never Alcohol Use Standard Drinks/Week Comments No 0 (1 standard drink = 0.6 oz pur e alcohol) Sex and Gender Information Value Date Recorded Sex Assigned at Male 09/01/2024 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 Vascular Ultrasound [facility] [place] [address] [place] [address] Hiren Omalley MD [address] [phone] 09/20/2025 2:00 PM SENIOR FINANCIAL ANALYST Appointment [facility] Vascular Ultrasound [facility] [address] [place] [address] Hiren Omalley MD [address] [address] Scheduled Orders Name Type Priority Associated Diagnoses Orde r Schedule USV ART DUPLEX LOW ERMA US VASC Routine Atherosclerosis of [place] artery of both lower extremities with intermittent claudication Expected: 09/03/2025, Expires: 03/03/2026 USV TIMOTHY LTD ERMA US VASC Routine PVD (peripheral vascular disease) Expected: 03/03/2025, Expires: 03/03/2026 documented as of this encounter Visit Diagnoses Diagnosis Atherosclerosis of [place] artery of both lower extremities with intermittent claudication- Primary Atherosclerosis of [place] arteries of the extremities with intermittent claudication Peripheral vascular disease, unspecified PVD (peripheral vascular disease) Peripheral vascular disease, unspecified documented in this encounter Care Teams Check Embosser Relationship Specialty Start Date End Date Doroteo Vuong MD [address] [place] [address] PCP - General INTERNAL MEDICINE 01/19/18 Sachin Urbano MD [address] [place] [phone] Consulting Physician INTERNAL MEDICINE 03/04/22 Barrie Diego MD [address] [place] [address] Consulting Physician INTERVENTIONAL CARDIOLOGY 03/10/22 documented as of this encounter
--- OUTSIDE RECORDS SUMMARY | 2025-04-10 13:34 | XMS_ITS | Clinical Summary ---
Author Organization [facility] Address [address] [place] [id number] Care Team Providers Care Surveillance Analyst Name Role Phone Doroteo Vuong MD Primary Care Provider [phone] Allergies No known active allergies Medications Eliquis 2.5 mg tablet Take 1 tablet (2.5 mg total) by mouth 2 (two) times a day 11/29/19 25 Active aspirin 81 mg enteric coated tablet Take 1 tablet (81 mg total) by mouth animal cruelty investigator before breakfast Active cetirizine (ZyrTEC) 10 mg tablet Take 1 tablet (10 mg total) by mouth every evening Active empagliflozin (JARDIANCE) 25 mg tablet Take 1 tablet (25 mg total) by mouth animal cruelty investigator before breakfast 08/28/19 23 Active fluticasone (VERAMYST) 27.5 mcg/actuation nasal spray Administer 1 spray into affected nostril(s) 2 (two) times a day Active lisinopril-hyd roCHLOROthiazi de (ZESTORETIC) 20-12.5 mg per tablet Take 1 tablet by mouth animal cruelty investigator before breakfast 01/09/20 19 Active metoprolol tartrate (LOPRESSOR) 75 mg tablet immediate release tablet Take 1 tablet (75 mg total) by mouth 2 (two) times a day 09/01/19 24 Active montelukast (SINGULAIR) 10 mg tablet Take 1 tablet (10 mg total) by mouth nightly Active niacin ER (SLO-NIACIN) 500 mg CR tablet Take 2 tablets (1,000 mg total) by mouth nightly Active omeprazole (PriLOSEC) 20 mg capsule Take 1 capsule (20 mg total) by mouth animal cruelty investigator before breakfast Active rosuvastatin (CRESTOR) 40 mg tablet Take 1 tablet (40 mg total) by mouth every evening Active Rybelsus 7 mg tablet Take 1 tablet (7 mg total) by mouth animal cruelty investigator before breakfast 11/29/19 25 Active albuterol HFA (PROVENTIL HFA,VENTOLIN HFA,PROAIR HFA) 90 mcg/actuation inhaler Inhale 2 puffs every 4 (four) hours as needed for shortness of breath or wheezing 12/20/19 25 Active acetaminophen (TYLENOL) 500 mg tablet Take 1 tablet (500 mg total) by mouth every 6 (six) hours as needed for pain Active HYDROcodone-ac etaminophen (NORCO) 5-325 mg per tabletIndicati ons:Pain Take 1 tablet by mouth every 6 (six) hours as needed for pain 10 tablet 03/17/20 25 Active ofloxacin (FLOXIN) 0.3 % otic solution Administer 5 drops into the left ear daily 5 mL 3 03/19/20 25 Active HYDROcodone-ac etaminophen (NORCO) 5-325 mg per tabletIndicati ons:Pain Take 1 tablet by mouth every 6 (six) hours as needed for pain 10 tablet 03/17/20 25 025 Discontinued amoxicillin-cl avulanate (AUGMENTIN) 875-125 mg per tablet Take 1 tablet (875 mg of amoxicillin total) by mouth 2 (two) times a day for 5 days 10 tablet 03/17/20 25 025 Discontinued ofloxacin (FLOXIN) 0.3 % otic solution Administer 5 drops into the left ear daily 5 mL 3 03/19/20 25 025 Discontinued amoxicillin-cl avulanate (AUGMENTIN) 875-125 mg per tablet Take 1 tablet (875 mg of amoxicillin total) by mouth 2 (two) times a day for 5 days 10 tablet 03/17/20 25 025 Active Problems Problem Noted Date Diagnosed Date Mastoiditis of left side 03/17/2025 Cholesteatoma of mastoid, left ear 12/29/2024 Mixed conductive and sensorineural hearing loss, bilateral 12/29/2024 Central perforation of tympanic membrane, right ear 12/29/2024 Bilateral leg pain 12/06/2024 Non-pressure chronic ulcer [...] Encounters Date Type Department Care Team Description 03/18/2025 Telephone [facility] Surgeon [address] [place] [address] Jon Barahona MD 03/17/2025 1:48 PM CDT Anesthesia Event [facility] Operating Room [address] [place] [address] Rc Mcgovern MD Wilkinson, Christina A., NP 03/17/2025 1:40 PM CDT - 03/17/2025 4:40 PM CDT Surgery [facility] Operating Room [address] [place] [id number] Tatyana Mathews MD TYMPANOPLASTY WITH CANAL WALL DOWN MASTOIDECTOMY. 03/17/2025 11:59 AM CDT - 03/17/2025 5:54 PM CDT Hospital Encounter [facility] Operating Room [address] [place] [address] Tatyana Mathews MD Mixed conductive and sensorineural hearing loss, bilateral [H90.6] (Primary Dx); Cholesteatoma of mastoid, left ear; Mastoiditis of left side [H70.92] Discharge Disposition: Discharge to home or self care from Last 3 Months Immunizations Immunization Administration [...] 01/22/2022 Surgical History Surgery Date Site/Laterality Comments MD BYPASS W/VEIN FEMORAL-POPLITEAL 11/2024 RT 12/2024 LT MD COLONOSCOPY FLX DX W/COLLJ SPEC WHEN PFRMD 08/17/2021 - 08/16/2022 Colonoscopy (Fiberoptic) - -w/removal of benign polyps (Added by Conv) INGUINAL HERNIA REPAIR 08/17/1984 - 08/16/1985 Bilateral TYMPANOPLASTY W/ MASTOIDECTOMY 03/17/2025 Ear/Left Procedure: TYMPANOPLASTY WITH CANAL WALL DOWN MASTOIDECTOMY.; Surgeon: Tatyana Mathews MD; Location: [facility] OPERATING ROOM; Service: Otolaryngology; Laterality: Left; GRAFT EAR CARTILAGE 03/17/2025 Ear/Left Procedure: GRAFT EAR CARTILAGE.; Surgeon: Tatyana Mathews MD; Location: [facility] OPERATING ROOM; Service: Otolaryngology; Laterality: Left; Medical History Medical History Date Comments Personal history of other di seases of the circulatory system History of hypertension - (A dded by Conv) Personal history of other en docrine, nutritional and metabolic disease History of hyperlipi demia - (Added by Conv) Personal history of other di seases of urinary system History of acute renal failu re - -per outside records this has resolved and was mostly prerenal phenomenon in the setting of MERCY inhibitors and diuretic use--pt believes this was when he was dehydrated (Added by Conv) Personal history of other di seases of the circulatory system History of peripheral vascul ar disease - -reports bypas procedure on the left leg--currently no symptoms (Added by TW Conv) Sleep apnea Hypertension RBBB (right bundle branch block) DVT (deep venous thrombosis) his tory to LEFT LE Family History Medical History Relation Name Comments Heart attack Father Anesthesia problems Neg Hx Malig Hyperthermia Neg Hx Pseudochol deficiency Neg Hx Relation Name Status Comments Father Social History Tobacco Use Types Packs/Day Years Used Date Smoking Tobacco: Former Cigarettes 1.5 54.9 1 970 - 07/2024 Smokeless Tobacco: Never AUDIT-C Answer Date Recorded Q1: How often do you have a drink containing alc ohol? 2-4 times a month 03/17/2025 Q2: How many drinks containi ng alcohol do you have on a typical day when you are drinking? 1 or 2 03/17/2025 Q3: How often do you have si x or more drinks on one occasion? Never 03/17/2025 Personal Safety Answer Date Recorded Have you ever been in or are you currently in a harmful physical or emotional relationship or is someone making you feel afraid or unsafe? 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 Gender Identity Not on file Sexual Orientation Not on file Obstetrics History Last Filed Vital Signs Vital Sign Reading Time Taken Comments Blood Pressure 142/62 03/17/2025 5:40 PM CDT Pulse 76 03/17/2025 5:40 PM CDT Temperature 36.6 C (97.9 F) 03/17/2025 4:55 PM CDT Respiratory Rate 19 03/17/2025 5:40 PM CDT Oxygen Saturation 95% 03/17/2025 5:40 PM CDT Inhaled Oxygen Concentration - - Weight 102.2 kg (225 lb 4.8 oz) 025 12:18 PM CDT Height 172.7 cm (5' 8) 03/17/2025 12:1 8 PM CDT Body Mass Index 34.26 03/17/2025 12:18 PM CDT Plan of Treatment Health Maintenance Due Date Last Done Comments Colon Cancer Screening-Colonoscopy 1955 Depression Screening 1955 Hepatitis C Screening 1955 Hepatitis B Screening 1972 Lung Cancer Screening 2004 Well Visit 65+ 2019 Zoster Vaccine (2 of 2) 03/19/2022 01/22/2022 DTaP/Tdap/Td Vaccine (2 - Td or Tdap) 12/29/2023 12/28/2013 Covid-19 Vaccine (7 2023-2 5 season) 2024 06/16/2024, 05/27/2022, 02/27/2022, Additional history exists Influenza Vaccine (#1) 2025 , 04/28/2023, 04/30/2022, Additional history exists Fall Risk Assessment 03/17/2026 03/17/2025 Pneumococcal vaccine 65+ Completed 021, 12/30/2018, 12/28/2013 Abdominal Aortic Aneurysm (A AA) Screen Completed 08/08/2024, 02/18/2023, 02/18/2022, Additional history exists Procedures Procedure Name Priority Date/Time Associated Diagnosis Comments POCT GLUCOSE DEVICE Routine 03/17/2025 4 :55 PM CDT SURGICAL PATHOLOGY Routine 03/17/2025 4: 13 PM CDT Cholesteatoma of mastoid, left ear POCT GLUCOSE DEVICE Routine 03/17/2025 2 :49 PM CDT MD AN PROCEDURE PLACEHOLDER Routine 03/17/2025 2:11 PM CDT MD AN ELECTIVE ENDOTRACHEAL AIRWAY Routine 03/17/2025 2:11 PM CDT MD GRAFT EAR CRTLG AUTOGENOUS NOSE/EAR 03/17/2025 1:49 PM CDT Cholesteatoma of mastoid, left ear TYMPANOPLASTY WITH MASTOIDECTOMY. 03/17/2025 1:49 PM CDT Cholesteatoma of mastoid, left ear POC ISTAT Routine 03/17/2025 12:38 PM CDT POCT GLUCOSE DEVICE Routine 03/17/2025 1 2:36 PM CDT from Last 3 Months Results * POCT glucose (03/17/2025 4:55 PM CDT) Glucose, POC 141 70 - 199 mg/dL Comment: Interpretive Data Glucose is assumed to be non-fasting. Fasting Glucose reference ranges are: 0 - 150 years: 70 mg/dL - 99 mg/dL Current interpretive data was last revised on 2014. POC Device Number [id number] [facility] Blood 03/17/2025 4:55 PM CDT 03/17/2025 4:55 PM CDT us Tatyana Mathews MD LAB POCT ORDERABLES - DEVICE Final Result [facility] [id number] [facility] [place] [address] * Surgical pathology (03/17/2025 4:13 PM CDT) Tissue (Middle ear contents) 03/17/2025 4:13 PM CDT Narrative PATHOLOGY [facility] - 03/22/2025 10:27 AM CDT EPIC results best viewed via link to PDF [facility] [place] [address] Note to Patients: This report may contain a detailed description of human tissue sent by a health care provider to the laboratory for pathologic evaluation. The content of this report is essential for diagnosis and may provide important critical findings. This information may be unfamiliar to patients to review without a medical professional present. It is advised that the patient review this report in the presence of a health care provider who can answer questions and explain the details. SURGICAL PATHOLOGY REPORT FINAL Patient Name: FRANCESCO SMITH Gender: M : 1955 (Age: 69) Address: [address] [place] [id number] [facility] #: [id number] Taken:03/17/2025 Received:03/17/2025 Reported: 03/22/2025 Patient Type: [facility] EP SAME Client [facility] Service: Surgery Location: Physician(s): Roderick Davis M.D. Diagnosis: Ear, left middle, extraction: - Minute fragment of cauterized fibrous tissue and bone - See comment kng/03/22/2025 08:12 By this signature, I attest that the above diagnosis is based upon my personal examination of the slides(and/or other material indicated in the diagnosis). Radha Gamble MD, PhD Report Electronically Reviewed and Signed Out By Radha Gamble MD, PhD 03/22/2025 10:27:06 Microscopic Description and Comment: Sections show a minute fragment of cauterized fibrous tissue and bone. There is no significant inflammation, keratinous debris, squamous epithelium, or granulation tissue. The findings are not diagnostic for cholesteatoma. Clinical correlation is recommended. Praful Porter M.D. History: The patient is a 69-year-old man presenting for left ear cholesteatoma, chronic otitis media, chronic mastoiditis, and associated mixed hearing loss. Operative procedure: Left tympanoplasty with canal wall down mastoidectomy, left ear cartilage graft. Specimen(s) Received: A: Left middle ear contents Gross Description: Received in a single formalin filled container labeled with the patient's name and left middle ear contents are multiple minute fragments of soft white to dark purple tissue (0.5 x 0.2 x less than 0.1 cm in aggregate). Filtered. Labeled A1. Jar 0. emg/03/20/2025 15:37 PA(s): Waleska Sigala, MS, PA (ASCP)CM By this signature, I attest that the above diagnosis is based upon my personal examination of the slides(and/or other material). Addenda/Procedures Microscopic slide review and interpretation for this case was performed at [facility], Department of Surgical Pathology, [address] [facility] [id number], [place] [address] CLIA # [id number] The performance characteristics of some immunohistochemical stains, fluorescence in-situ hybridization tests and immunophenotyping by flow cytometry cited in this report (if any) were determined by the Surgical Pathology and Flow Cytometry Departments at [facility] as part of an ongoing quality control operator program and in compliance with federally mandated regulations drawn from the Clinical Laboratory Improvement Act of 1988 (CLIA '88). Some of these tests rely on the use of analyte specific reagents and are subject to specific labeling requirements by the US Food and Drug Administration. Such diagnostic tests may only be performed in a facility that is certified by the Department of Health and Human Services as a high complexity laboratory under CLIA '88. The FDA has determined that such clearance or approval is not necessary. This test is used for clinical purposes. It should not be regarded as investigational or for research. Nevertheless, federal rules concerning the medical use of analyte specific reagents require that the following disclaimer be attached to the report: This test was developed and its performance characteristics determined by the Surgical Pathology and Flow Cytometry Departments of [facility]. It has not been cleared or approved by the U. S. Food and Drug Administration. IMAGES AND SCANNED DOCUMENTS, IF INCLUDED, ONLY VIEWABLE IN PDF VERSION OF REPORT Tatyana Mathews MD LAB PATHOLOGY ORDERABLES Danika l Result PATHOLOGY [facility] * POCT glucose (03/17/2025 2:49 PM CDT) Glucose, POC 126 70 - 199 mg/dL Comment: Interpretive Data Glucose is assumed to be non-fasting. Fasting Glucose reference ranges are: 0 - 150 years: 70 mg/dL - 99 mg/dL Current interpretive data was last revised on 2014. POC Device Number [id number] [facility] Blood 03/17/2025 2:49 PM CDT 03/17/2025 2:49 PM CDT Tatyana Mathews MD LAB POCT ORDERABLES - DEVICE Final Result [facility] [id number] [facility]. [place] [address] * MD AN ELECTIVE ENDOTRACHEAL AIRWAY, MD AN PROCEDURE PLACEHOLDER (03/17/2025 2:11 PM CDT) Narrative Celi Wilkes CRNA - 03/17/2025 2:11 PM CDT Celi Wilkes CRNA 03/17/2025 2:11 PM Airway Patient location: OR Urgency: elective Indications for airway management: anesthesia Difficult airway: no Staff: Placed by: PORTABLE ROUTER OPERATOR: Celi Wilkes CRNA Emergent airway documentation: Risks and benefits discussed: yes Consent obtained: yes Consent given by: patient Airway prep: Preoxygenated: yes Patient position: sniffing Mask difficulty assessment: 0 - not attempted Spontaneous ventilation during airway: absent Sedation level during airway: GA Final airway details: Final airway type: endotracheal airway Tube type: ETT ETT size: 7.5 mm Cuffed: yes Technique used for successful ETT placement: optical laryngoscopy Insertion site: oral Cuff inflated with: air ETT to lips: 23 cm Placement verified by: auscultation and CO2 detection Airway secured with: silk tape Number of attempts: 1 us Rc Mcgovern MD ANESTHESIA ORDERABLES Danika l Result * POC ISTAT (03/17/2025 12:38 PM CDT) K POC 4.5 3.3 - 4.9 mmol/L Comment: Interpretive Data This method is not able to assess for hemolysis, which may falsely increase potassium concentrations. If further testing is needed to evaluate this result, consider in-laboratory plasma potassium. Current Interpretive Data was last revised on 2022. POC Device Number [id number] [facility] Blood 03/17/2025 12:3 8 PM CDT 03/17/2025 12:38 PM CDT us Tatyana Mathews MD LAB BLOOD ORDERABLES Final Re sult [facility] [id number] [facility]. [place] [address] * POCT glucose (03/17/2025 12:36 PM CDT) Glucose, POC 115 70 - 199 mg/dL Comment: Interpretive Data Glucose is assumed to be non-fasting. Fasting Glucose reference ranges are: 0 - 150 years: 70 mg/dL - 99 mg/dL Current interpretive data was last revised on 2014. POC Device Number [id number] [facility] Blood 03/17/2025 12:3 6 PM CDT 03/17/2025 12:36 PM CDT Tatyana Mathews MD LAB POCT ORDERABLES - DEVICE Final Result [facility] [address] [facility]. [place] [address] from Last 3 Months Insurance T MEDICARE [employer] MED[employer]ARE Care Teams Surveillance Analyst Relationship Specialty Start Date End Date Doroteo Vuong MD [address] [place] [address] PCP - General Internal Medicine 11/01/24
--- OUTSIDE RECORDS SUMMARY | 2025-04-10 13:34 | XMS_ITS | Clinical Summary ---
Author Organization [facility] Address [address] [place] [address] Care Team Providers Care Support Teacher Name Role Phone Doroteo Vuong MD Primary Care Provider [phone] Sachin Urbano MD Unavailable Barrie Diego MD Unavailable [phone] Allergies No known active allergies Medications montelukast 10 MG tablet Take 1 tablet (10 mg total) by mouth nightly at bedtime. Active cetirizine 10 MG tablet Take 1 tablet (10 mg total) by mouth daily. Active omeprazole 20 MG capsule Take 1 capsule (20 mg total) by mouth daily. Active aspirin EC (ECOTRIN) 81 MG tablet Take 1 tablet (81 mg total) by mouth daily. Active lisinopril-hydro chlorothiazide 20-12.5 MG tablet Take 1 tablet by mouth daily. 9 Active fluticasone furoate 27.5 MCG/SPRAY Suspension 1 spray by Each Nostril route as needed (prn). Active LYMPHEDEMA PUMP, DME,Indications: Chronic venous insufficiency,Hi story of DVT (deep vein thrombosis) Apply 1 Device topically daily. Lymphedema Pump DX I89.0 1 Device 1 0 Active empagliflozin (JARDIANCE) 25 MG tablet Take 1 tablet (25 mg total) by mouth daily. 3 Active buPROPion XL (WELLBUTRIN XL) 150 MG 24 hr tablet Take 1 tablet (150 mg total) by mouth every morning. 3 Active metoprolol tartrate 75 MG Tab Take 75 mg by mouth 2 (two) times daily. 60 tablet 5 4 Active cilostazol (PLETAL) 100 MG tablet take one tablet by mouth twice a day 180 tablet 6 4 Active Additional Information Patient taking differently: 100 mg Oral 2 times daily, Reported on 01/16/2025 COMPRESSION STOCKINGSIndicat ions:PVD (peripheral vascular disease) with claudication 10-15 MMHg Compression Stocking Knee High open or closed toe to be worn during waking hours Dx I83.893 1 Container 6 4 Active Additional Information Patient taking differently: 1 Application Does not apply See admin instructions, 10-15 MMHg Compression Stocking Knee High open or closed toe to be worn during waking hoursDx I83.893, Reported on 01/16/2025 rosuvastatin (CRESTOR) 40 MG tablet Take 1 tablet (40 mg total) by mouth nightly at bedtime. Active Semaglutide (RYBELSUS) 1.5 MG Tab Take 3 mg by mouth daily. Active apixaban (ELIQUIS) 2.5 MG tablet TAKE ONE TABLET BY MOUTH TWICE A DAY 180 tablet 5 Active niacin CR (NIASPAN) 500 MG tablet Take 2 tablets (1,000 mg total) by mouth daily. Active Active Problems Problem Noted Date Diagnosed Date Primary hypertension 09/01/2023 History of DVT (deep vein thrombosis) 01/18/2020 Varicose veins of bilateral lower extremities with other complications 01/31/2019 intermediate (current) use of anticoagulants 2017 Acute deep vein thrombosis ( DVT) of femoral vein of left lower extremity ([facility] HHS/HCC) 03/23/2018 Ulcer of left lower extremit y with fat layer exposed ([facility] HHS/HCC) 03/23/2018 PVD (peripheral vascular disease) with claudicat ion 02/04/2018 Chronic venous insufficiency 02/04/2018 Femoral-popliteal bypass graft occlusion, left 0 02/04/2018 Acute deep vein thrombosis ( DVT) of popliteal vein of left lower extremity ([facility] HHS/HCC) 02/04/2018 Bilateral leg pain PAD (peripheral artery disease) PVD (peripheral vascular disease) Overview (02/09/2018): S/P Left leg bypass Smoking trying to quit 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 Vascular [facility] [address] [place] [address] Rashel Vences MD Discharge Disposition: Home or Self Care (Routine Discharge) 03/01/2025 Travel 01/31/2025 Community Orders [facility] EPICCARE LINK Rashel Vences MD 01/16/2025 6:21 AM CDT - 01/16/2025 5:49 PM CDT Hospital Encounter [facility] Pre[facility] [address] [place] [address] Rashel Vences MD Discharge Disposition: Home or Self Care (Routine Discharge) 01/16/2025 Travel from Last 3 Months Immunizations Immunization [...] Sex Assigned at Male 09/01/2024 11:26 AM MANUFACTURER'S REPRESENTATIVE Legal Sex Male 1:56 PM CDT Gender Identity Not on file Sexual Orientation Not on file Occupation Industry Job Start Date Job End Date Not on file Not on file Not on file Not on file Last Filed Vital Signs Vital Sign Reading Time Taken Comments Blood Pressure 103/58 01/16/2025 5:00 PM CDT Pulse 84 01/16/2025 5:00 PM CDT Temperature 36.5 C (97.7 F) 01/16/2025 7:42 AM CDT Respiratory Rate 16 01/16/2025 7:42 AM CDT Oxygen Saturation 95% 01/16/2025 7:42 AM CDT Inhaled Oxygen Concentration - - Weight 106.4 kg (234 lb 9.1 oz) 01/16/2025 6:52 AM CDT Height 172.7 cm (5' 8) 01/16/2025 6:52 AM CDT Body Mass Index 35.67 01/16/2025 6:52 AM CDT Plan of Treatment Upcoming Encounters Date Type Department Care Team (Late st Contact Info) Description 09/20/2025 1:00 PM MANUFACTURER'S REPRESENTATIVE Appointment [facility] [address] [place] [address] Rashel Vences MD [address] [phone] 09/20/2025 2:00 PM MANUFACTURER'S REPRESENTATIVE Appointment [facility] [address] [place] [address] Rashel Vences MD [address] [phone] Health Maintenance Due Date Last Done Comments [...] Years Completed 07/21/2024 AAA SCREENING Completed 08/08/2024, 12/2022, 02/18/2022, Additional history exists Meningococcal B Vaccine Aged Out No l onger eligible based on patient's age to complete this topic Meningococcal Vaccine Aged Out No franchesca mekhi eligible based on patient's age to complete this topic RSV Immunizations Under 20 Months Aged Out No longer eligible based on patient's age to complete this topic Medical Devices Implanted Type Area Healthcare Applications Analyst Device Identifier Shelf Expiration Date Model / Serial / Lot Eastman Viabahn 6mm X 10cm-11/21/2024 Implanted:Qty: 1 on 11/21/2024 by Rashel Vences MD [employer] 11/25/2026 [id number] / [id number] / Ev3 Everflex 7mm X 60mm-01/16/2025 Implanted:Qty: 1 on 01/16/2025 by Rashel Vences MD [employer] ([employer]) 03/12/2025 [id number] 60-120 / / [id number] Everflex 7mm X 120mm-01/16/2025 Implanted:Qty: 1 on 01/16/2025 by Rashel Vences MD [employer] ([employer] 06/24/2025 [id number] 20-120 / / [id number] - [id number] Implanted:2017 by Barrie Diego MD at [facility] (Quantity not on file) Arterial [employer] - DIV C R BARD [id number] / / [id number] - [id number] Implanted:Qty: 1 on 04/16/2018 by Barrie Diego MD at [facility] Arterial [employer] - DIV [employer] R BARD [id number] / / [id number] Procedures Procedure Name Priority Date/Time Associated Diagnosis Comments USV ART DUPLEX LOW RT Routine 03/01/2025 1:43 PM CDT Atheroscler of hoh artery of right leg with intermit claudication POCT ACTIVATED CLOTTING TIME - ISTAT DOCKED DEVICE Routine 01/16/2025 11:17 AM CDT POCT ACTIVATED CLOTTING TIME - ISTAT DOCKED DEVICE Routine 01/16/2025 10:43 AM CDT POCT ACTIVATED CLOTTING TIME - ISTAT DOCKED DEVICE Routine 01/16/2025 10:32 AM CDT POCT ACTIVATED CLOTTING TIME - ISTAT DOCKED DEVICE Routine 01/16/2025 9:48 AM CDT POCT ACTIVATED CLOTTING TIME - ISTAT DOCKED DEVICE Routine 01/16/2025 9:39 AM CDT CBC, AUTO, NO DIFF Routine 01/16/2025 7: 15 AM CDT Preop cardiovascular exam BASIC METABOLIC PANEL Routine 01/16/2025 7:15 AM CDT Preop cardiovascular exam PARTIAL THROMBOPLASTIN TIME,PTT Routine 01/16/2025 7:15 AM CDT Preop cardiovascular exam PROTHROMBIN TIME, VENOUS Routine 01/16/2025 7:15 AM CDT Preop cardiovascular exam CTA AORTO ILIOFEM RUNOFF ADRIEL 08/08/2024 10:39 AM MANUFACTURER'S REPRESENTATIVE Peripheral vascular disease LIPID PANEL Routine 08/19/2017 from Last 3 Months or Most Recently Relevant to Health Maintenance Results * USV ART DUPLEX LOW RT (03/01/2025 1:43 PM CDT) Anatomical Region Laterality Modality Extremity Ultrasound 03/01/2025 12:5 5 PM CDT Narrative 03/02/2025 1:16 PM CDT Vascular Report Pat.Name: FRANCESCO SMITH Pat.ID: [id number] .Date: 03/01/2025 Refer.: [id number] VANGIE Huerta EWDPROV EWDPROV Exam Time: 12:55:00 PM Study Type:PVI ART DUPLEX SCAN-RIGHT LEG Age: 11 1955,69Y Sex: M Sonogrphr: Terry Blair, RVTPat. Stat.:Outpatient ICD - 9: I73.9 PVD (peripheral arterial/vascular disease) CPT - 4: 56831 Arterial Duplex LE Reason for Study:PVD Race: W ++++++++++++++++++++++++++++++++++++ FINDINGS: ++++++++++++++++++++++++++++++++++++ Rt Lower Ext: Stent noted in the proximal superficial femoral to proximal popliteal arteries. Patent stent. The resting TIMOTHY is 0.99. This suggests borderline peripheral arterial disease. ++++++++++++++++++++++++++++++++++++ MEASUREMENTS: ++++++++++++++++++++++++++++++++++++ DOPPLER Right METAL BURNISHER METAL BURNISHER PSV 73.6 cm/s Right Prox Profunda Prox Profunda P 54.9 cm/s Right SFA Prox Prox SFA PSV 91.1 cm/s Right Dist Pop A Dist Pop A PSV 47 cm/s Right Tib Cooper Trunk Tib Cooper Trunk 53 cm/s Right Prox MACHINE HOOP MAKER Prox MACHINE HOOP MAKER PSV 87 cm/s Right Dist MACHINE HOOP MAKER Dist MACHINE HOOP MAKER PSV 60.3 cm/s Right Prox FERNIE Prox FERNIE PSV 47.2 cm/s Right Dist FERNIE Dist FERNIE PSV 70.8 cm/s PRESSURES Right Brachial Brach P 128 mmHg Right Ankle DP AnkleDP P 123 mmHg Right Ankle PT AnklePT P 127 mmHg Right TIMOTHY PT TIMOTHY PT 0.992 Right TIMOTHY DP TIMOTHY DP 0.961 Left Brachial Brach P 116 mmHg GRAFT Right Inflow Stent Prox SFA>AK popliteal:Stent Inflow Stent PS 173 cm/s Right Origin Stent Prox SFA>AK popliteal:Stent Origin Stent PS 134 cm/s Right Prox Stent Prox SFA>AK popliteal:Stent Prox Stent PSV 101 cm/s Right Mid Stent Prox SFA>AK popliteal:Stent Mid Stent PSV 50 cm/s Right Dist Stent Prox SFA>AK popliteal:Stent Dist Stent PSV 86 cm/s Right Outflow Stent Prox SFA>AK popliteal:Stent Outflow Stent P 68 cm/s <Electronic Signature> 03/02/2025 01:16 PM Radha Stovall M.D. Procedure Note Radha Stovall MD - 03/02/2025 Vascular Report Pat.Name: FRANCESCO SMITH Pat.ID: [id number] .Date: 03/01/2025 : [id number] VANGIE Huerta EWDPROV EWDPROV Exam Time: 12:55:00 PM Study Type:PVI ART DUPLEX SCAN-RIGHT LEG Age: 11 1955,69Y Sex: M Sonogrphr: Terry Blair TPat. Stat.:Outpatient ICD - 9: I73.9 PVD (peripheral arterial/vascular disease) CPT - 4: 99400 Arterial Duplex LE Reason for Study:PVD Race: W ++++++++++++++++++++++++++++++++++++ FINDINGS: ++++++++++++++++++++++++++++++++++++ Rt Lower Ext: Stent noted in the proximal superficial femoral to proximal popliteal arteries. Patent stent. The resting TIMOTHY is 0.99. This suggests borderline peripheral arterial disease. ++++++++++++++++++++++++++++++++++++ MEASUREMENTS: ++++++++++++++++++++++++++++++++++++ DOPPLER Right METAL BURNISHER METAL BURNISHER PSV 73.6 cm/s Right Prox Profunda Prox Profunda P 54.9 cm/s Right SFA Prox Prox SFA PSV 91.1 cm/s Right Dist Pop A Dist Pop A PSV 47 cm/s Right Tib Cooper Trunk Tib Cooper Trunk 53 cm/s Right Prox MACHINE HOOP MAKER Prox MACHINE HOOP MAKER PSV 87 cm/s Right Dist MACHINE HOOP MAKER Dist MACHINE HOOP MAKER PSV 60.3 cm/s Right Prox FERNIE Prox FERNIE PSV 47.2 cm/s Right Dist FERNIE Dist FERNIE PSV 70.8 cm/s PRESSURES Right Brachial Brach P 128 mmHg Right Ankle DP AnkleDP P 123 mmHg Right Ankle PT AnklePT P 127 mmHg Right TIMOTHY PT TIMOTHY PT 0.992 Right TIMOTHY DP TIMOTHY DP 0.961 Left Brachial Brach P 116 mmHg GRAFT Right Inflow Stent Prox SFA>AK popliteal:Stent Inflow Stent PS 173 cm/s Right Origin Stent Prox SFA>AK popliteal:Stent Origin Stent PS 134 cm/s Right Prox Stent Prox SFA>AK popliteal:Stent Prox Stent PSV 101 cm/s Right Mid Stent Prox SFA>AK popliteal:Stent Mid Stent PSV 50 cm/s Right Dist Stent Prox SFA>AK popliteal:Stent Dist Stent PSV 86 cm/s Right Outflow Stent Prox SFA>AK popliteal:Stent Outflow Stent P 68 cm/s <Electronic Signature> 03/02/2025 01:16 PM Radha Stovall M.D. Rashel Vences MD [facility] Final Resu lt * (ABNORMAL) POCT ACTIVATED CLOTTING TIME - ISTAT DOCKED DEVICE (01/16/2025 11:17 AM CDT) Only the most recent of5 resultswithin the time period is included. ACTIVATED CLOTTING TIME (ACT HMT OR LMT) 193(H) 74 - 137 SEC 01/16/2025 12:[address] [facility] 01/16/2025 11:1 7 AM CDT Rashel Vences MD POCT ORDERABLES - DEVICE F inal Result [facility] [address] [place] [address], [id number] * PARTIAL THROMBOPLASTIN TIME,PTT (01/16/2025 7:15 AM CDT) PTT 30.0 25.1 - 36.5 SEC 01/16/2025 7:[address] [facility] 01/16/2025 7:15 AM CDT us Rashel Vences MD [facility] Per[facility] Organization Address [facility] de Phone Number [facility] [address] [place] [address], [place] [phone] [phone] * PROTIME/INR, VENOUS (PROTHROMBIN TIME) (01/16/2025 7:15 AM CDT) PROTIME 10.3 9.4 - 12.5 SEC 01/16/2025 7:[address] [facility] INR 0.9 0.8 - 1.1 01/16/2025 7:[address] [facility] 01/16/2025 7:15 AM CDT us Rashel Vences MD LABORATORY [facility] Performing Organization Address [facility] de Phone Number [facility] [address] [place] [address], [id number] * (ABNORMAL) BASIC METABOLIC PANEL (01/16/2025 7:15 AM CDT) SODIUM S/P/B 138 136 - 145 MMOL/L 01/16/2025 7:[address] [facility] POTASSIUM S/P/B 4.6 3.5 - 5.1 MMOL/L 01/16/2025 7:[address] [facility] CHLORIDE S/P/B 107 97 - 115 MMOL/L 01/16/2025 7:[address] [facility] CO2 24.6 21.0 - 32.0 MMOL/L 01/16/2025 7:[address] [facility] GLUCOSE 130(H) 74 - 106 MG/DL 01/16/2025 7:[address] [facility] BUN 33(H) 7 - 18 MG/DL 01/16/2025 7:[address] [facility] CREATININE S/P/B 1.69(H) 0.70 - 1.30 MG/DL 01/16/2025 7:[address] [facility] CALCIUM S/P/B 9.1 8.5 - 10.1 MG/DL 01/16/2025 7:[address] [facility] ANION GAP 6.4 2.0 - 10.0 MMOL/L 01/16/2025 7:[address] [facility] OSMOLALITY (CALC) 295 MOSM/KG 025 7:[address] [facility] Comment:REFERENCE RANGE NOT ESTABLISHED GFR ESTIMATE 43(L) >90 ML/MIN/1. 73 M2 01/16/2025 7:[address] [facility] GFR NOTES GFR REFERENCE S: 01/16/2025 7:[address] [facility] Comment: THE ESTIMATED GFR IS [...] ml/min/1.73 m2 G5,KIDNEY FAILURE: <15 ml/min/1.73 m2 01/16/2025 7:15 AM CDT us Rashel Vences MD LABORATORY Final Resu lt [facility] [address] [place] [address], [id number] * (ABNORMAL) CBC, AUTO, NO DIFF (01/16/2025 7:15 AM CDT) WBC 5.47 4.00 - 10.80 x10'3/uL 01/16/2025 7:[address] [facility] RBC 3.94(L) 4.50 - 6.10 x10'6/uL 01/16/2025 7:[address] [facility] HGB 11.3(L) 13.0 - 18.0 G/DL 01/16/2025 7:[address] [facility] HCT 34.2(L) 37.0 - 52.0 % 01/16/2025 7:[address] [facility] MCV 86.8 78.0 - 100.0 FL 01/16/2025 7:[address] [facility] MCH 28.7 27.0 - 31.0 PG 01/16/2025 7:[address] [facility] MCHC 33.0 33.0 - 36.0 G/DL 01/16/2025 7:[address] [facility] RDW 13.7 11.5 - 14.5 % 01/16/2025 7:[address] [facility] PLT 150 150 - 350 x10'3/uL 01/16/2025 7:[address] [facility] MPV 8.6 7.4 - 10.4 FL 01/16/2025 7:[address] [facility] 01/16/2025 7:15 AM CDT Rashel Vences MD LABORATORY Final Resu lt [facility] [address] [place] [address], [id number] * CTA AORTO ILIOFEM RUNOFF (08/08/2024 10:39 AM MANUFACTURER'S REPRESENTATIVE) Anatomical Region Laterality Modality Abdomen, Pelvis, Extremity Compu nick Tomography 08/08/2024 3:25 PM MANUFACTURER'S REPRESENTATIVE Impressions 08/08/2024 3:33 PM MANUFACTURER'S REPRESENTATIVE IMPRESSION: Chronic total occlusion of distal right [...] 08/08/2024 3:25 PM Narrative 08/08/2024 3:33 PM MANUFACTURER'S REPRESENTATIVE [address] [place] [address] CTA of abdominal aorta and bilateral lower [...] MIP images were obtained on the independent [employer] workstation. NONVASCULAR FINDINGS: No acute finding seen [...] Procedure Note Darius Rios MD - 08/08/2024 [place] [address] [facility] [place] [address] CTA of abdominal aorta and bilateral lower [...] and MIP images wereobtained on the independent [facility] workstation. NONVASCULAR FINDINGS: No acute finding seen [...] By: Darius Rios MD, 08/08/2024 3:25 PM [address] Vences MD CT Final Resu lt * LIPID PANEL (08/19/2017) CHOLESTEROL 176 HDL 32 TRIGLYCERIDES 195 NON HDL CHOLESTEROL 144 CHOL/HDL RATIO 5.5 LDL (CALCULATED) 113 08/19/2017 [facility] LABORATORY Final Result from Last 3 Months or Most Recently Relevant to Health Maintenance Insurance [employer] Advance Directives Documents on File Type Date Recorded Patient Information And Referral Director Expl anation Power of Delivery Director 06/24/2018 9:43 AM Care Teams Support Teacher Relationship Specialty Start Date End Date Doroteo Vuong MD [address] [place] [address] PCP - General INTERNAL MEDICINE 01/19/18 Sachin Urbano MD [address] [place] [phone] Consulting Physician INTERNAL MEDICINE 03/04/22 Barrie Diego MD [address] [place] [address] Consulting Physician INTERVENTIONAL CARDIOLOGY 03/10/22
--- OUTSIDE RECORDS SUMMARY | 2025-04-10 13:34 | XMS_ITS | Encounter Summary ---
Author Organization [facility] Address [facility] [place] [address] Care Team Providers Care Office Executive Name Role Phone Doroteo Vuong MD Primary Care Provider [phone] Sachin Urbano MD Unavailable Barrie Diego MD Unavailable [phone] Reason for Referral * Imaging (Routine) - Closed Specialty Diagnoses / Procedures Referred By Contac jeb Referred To Contact RADIOLOGY Diagnoses Atheroscler of picayune artery of right leg with intermit claudication Procedures USV ART DUPLEX LOW RT Hiren Omalley MD [address] [address] Phone: tel: fax: Referral ID Status Reason Start Date Expiration Date Visits Re quested Visits Authorized [id number] Closed 01/31/2025 03/02/2026 1 1 Encounter Details Date Type Department Care Team (Late st Contact Info) Description 01/31/2025 Community Orders [facility] EPICCARE [facility] Hiren Omalley MD [address] [phone] Social History Tobacco Use Types Packs/Day Years Used Date Smoking Tobacco: Every Day Cigarettes Smokeless Tobacco: Never Alcohol Use Standard Drinks/Week Comments No 0 (1 standard drink = 0.6 oz pur e alcohol) Sex and Gender Information Value Date Recorded Sex Assigned at Male 09/01/2024 11:26 AM MANAGER SURGICAL Legal Sex Male 1:56 PM CDT Gender Identity Not on file Sexual Orientation Not on file Occupation Industry Job Start Date Job End Date Not on file Not on file Not on file Not on file documented as of this encounter Plan of Treatment Upcoming Encounters Date Type Department Care Team (Late st Contact Info) Description 09/20/2025 1:00 PM MANAGER SURGICAL Appointment [facility] Vascular Ultrasound [facility] [address] [place] [address] Hiren Omalley MD [address] [phone] 09/20/2025 2:00 [address] [facility] Vascular Ultrasound [facility] [address] [place] [address] Hiren Omalley MD [address] [phone] documented as of this encounter Results * USV ART DUPLEX LOW RT (03/01/2025 1:43 PM CDT) Anatomical Region Laterality Modality Extremity Ultrasound 03/01/2025 12:5 5 PM CDT Narrative 03/02/2025 1:16 PM CDT Vascular Report Pat.Name: FRANCESCO SMITH Pat.ID: [id number] .Date: 03/01/2025 April.: [id number] VANGIE Huerta EWDPROV EWDPROV Exam Time: 12:55:00 PM Study Type:PVI ART DUPLEX SCAN-RIGHT LEG Age: 11 1955,69Y Sex: M Sonogrphr: Terry Blair, RVTPat. Stat.:Outpatient ICD - 9: I73.9 PVD (peripheral arterial/vascular disease) CPT - 4: 00660 Arterial Duplex LE Reason for Study:PVD Race: W ++++++++++++++++++++++++++++++++++++ FINDINGS: ++++++++++++++++++++++++++++++++++++ Rt Lower Ext: Stent noted in the proximal superficial femoral to proximal popliteal arteries. Patent stent. The resting TIMOTHY is 0.99. This suggests borderline peripheral arterial disease. ++++++++++++++++++++++++++++++++++++ MEASUREMENTS: ++++++++++++++++++++++++++++++++++++ DOPPLER Right DIE ENGRAVER DIE ENGRAVER PSV 73.6 cm/s Right Prox Profunda Prox Profunda P 54.9 cm/s Right SFA Prox Prox SFA PSV 91.1 cm/s Right Dist Pop A Dist Pop A PSV 47 cm/s Right Tib Cooper Trunk Tib Cooper Trunk 53 cm/s Right Prox FLOW SPECIALIST Prox FLOW SPECIALIST PSV 87 cm/s Right Dist FLOW SPECIALIST Dist FLOW SPECIALIST PSV 60.3 cm/s Right Prox FERNIE Prox [...] Stovall MD - 03/02/2025 Vascular Report Pat.Name: PIRFRANCESCO BEAVERS Pat.ID: [id number] .Date: 03/01/2025 Refer.: [id number] VAGNIE Huerta EWDPROV EWDPROV Exam Time: 12:55:00 PM Study Type:PVI ART DUPLEX SCAN-RIGHT LEG Age: 11 1955,69Y Sex: M Sonogrphr: Terry Blair, RVTPat. Stat.:Outpatient ICD - 9: I73.9 PVD (peripheral arterial/vascular disease) CPT - 4: 48784 Arterial Duplex LE Reason for Study:PVD Race: W ++++++++++++++++++++++++++++++++++++ FINDINGS: ++++++++++++++++++++++++++++++++++++ Rt Lower Ext: Stent noted in the proximal superficial femoral to proximal popliteal arteries. Patent stent. The resting TIMOTHY is 0.99. This suggests borderline peripheral arterial disease. ++++++++++++++++++++++++++++++++++++ MEASUREMENTS: ++++++++++++++++++++++++++++++++++++ DOPPLER Right DIE ENGRAVER DIE ENGRAVER PSV 73.6 cm/s Right Prox Profunda Prox Profunda P 54.9 cm/s Right SFA Prox Prox SFA PSV 91.1 cm/s Right Dist Pop A Dist Pop A PSV 47 cm/s Right Tib Cooper Trunk Tib Cooper Trunk 53 cm/s Right Prox FLOW SPECIALIST Prox FLOW SPECIALIST PSV 87 cm/s Right Dist FLOW SPECIALIST Dist FLOW SPECIALIST PSV 60.3 cm/s Right Prox FERNIE Prox [...] Signature> 03/02/2025 01:16 PM Radha Stovall M.D. 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
--- OUTSIDE RECORDS SUMMARY | 2025-04-10 13:34 | XMS_ITS | Encounter Summary ---
Author Organization [facility] Address [facility] [place] [address] Care Team Providers Care Instrument Setter Name Role Phone Doroteo Vuong MD Primary Care Provider [phone] Sachin Urbano MD Unavailable Sachin Urbano MD Unavailable Barrie Diego MD Unavailable [phone] Encounter Details Date Type Department Care Team (Late st Contact Info) Description 01/18/2020 Abstract [facility] [address] [place] [address] Sachin Urbano MD [address] [facility], [address] [place] [address] Social History Tobacco Use Types Packs/Day Years Used Date Smoking Tobacco: Every Day Cigarettes Smokeless Tobacco: Never Alcohol Use Standard Drinks/Week Comments No 0 (1 standard drink = 0.6 oz pur e alcohol) Sex and Gender Information Value Date Recorded Sex Assigned at Male 09/01/2024 11:26 AM ASSISTANT DIRECTOR OF RESIDENCE LIFE Legal Sex Male 1:56 PM CDT Gender [...] st Contact Info) Description 09/20/2025 1:00 PM ASSISTANT DIRECTOR OF RESIDENCE LIFE Appointment [facility] [address] [place] [address] Hiren Omalley MD [address] [phone] 09/20/2025 2:00 PM ASSISTANT DIRECTOR OF RESIDENCE LIFE Appointment [facility] [address] [place] [address] Hiren Omalley MD [address] [phone] documented as of this encounter Procedures Procedure [...] CREATININE S/P/B 1.0 0.7 - 1.3 12/24/2019 us Sachin Urbano MD LABORATORY Final Result * [...] complications documented in this encounter Care Teams Instrument Setter Relationship Specialty Start Date End Date Doroteo Vuong MD [address] [place] [phone] PCP - General INTERNAL MEDICINE 01/19/18 Sachin Urbano MD [address] [place] [phone] Vascular/Dry Chain Worker INTERNAL MEDICINE 02/04/18 Sachin Urbano MD [address] [place] [address] Consulting Physician INTERNAL MEDICINE 03/04/22 Barrie Diego MD [address] [place] [address] Consulting Physician INTERVENTIONAL CARDIOLOGY 03/10/22 documented as of this encounter
--- OUTSIDE RECORDS SUMMARY | 2025-04-10 13:34 | XMS_ITS | Encounter Summary ---
Author Organization [facility] Address [facility] [place] [address] Care Team Providers Care Physician President Name Role Phone Doroteo Vuong MD Primary Care Provider [phone] Sachin Urbano MD Unavailable Barrie Diego MD Unavailable [phone] Encounter Details Date Type Department Care Team (Late st Contact Info) Description 04/25/[address] 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 Legal Sex Male 1:56 PM CDT Gender Identity Not on file Sexual Orientation Not on file Occupation Industry Job Start Date Job End Date Not on file Not on file Not on file Not on file documented as of this encounter Plan of Treatment Upcoming Encounters Date Type Department Care Team (Late st Contact Info) Description 09/20/2025 1:00 PM 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 Appointment [facility] [address] [place], [place] [address] Hiren Omalley MD [address] [phone] 09/20/2025 2:00 PM 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 Appointment [facility] Vascular Ultrasound [facility] [address] [place] [address] Hiren Omalley MD [address] [phone] documented as of this encounter Visit Diagnoses Not on filedocumented in this encounter Care Teams Physician President Relationship Specialty Start Date End Date Doroteo Vuong MD [address] [place] [phone] PCP - General INTERNAL MEDICINE 01/19/18 Sachin Urbano MD [address] [place] [address] Consulting Physician INTERNAL MEDICINE 03/04/22 Barrie Diego MD [address] [place] [address] Consulting Physician INTERVENTIONAL CARDIOLOGY 03/10/22 documented as of this encounter
== END 2025-04-10 13:28 | disposition home or self-care (01) ==
LOC: CHSIMG 13:29
PROVIDERS: PCP Internal Medicine; Visit Provider Internal Medicine
DX: Z12.2 Encounter for screening for malignant neoplasm of respiratory organs (principal); Z87.891 Personal history of nicotine dependence; R91.8 Other nonspecific abnormal finding of lung field
CPT/HCPCS: 71271